=== PATIENT | male | born 1950 | race Caucasian/White ===

== ENCOUNTER 2021-07-10 11:07 | Inpatient (IN) | payer MEDICARE, BC ==
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
--- NOTE | 2021-07-10 12:29 | CR ---
Chest: Portable view of the chest was obtained. Comparison: No prior chest imaging is available. Patchy areas of increased density are seen on both sides of the chest. Heart size is normal. Slight tortuosity of the thoracic aorta is seen. Old healed fracture deformity is seen within the left clavicle. Mild scattered degenerative change is seen within the spine. Impression: 1. Moderately severe bilateral COVID pneumonia. 2. Other findings believed to be incidental. Diagnostic code #3
[2021-07-10] MEDS ORDERED: Dexamethasone 4 MG Tab PO ONE (12:50)
[2021-07-10] MEDS ORDERED: Sodium Chloride 0.9% 1,000 ML IV STA (12:50)
[2021-07-10] MEDS ORDERED: Temazepam 15 MG Cap PO PRN (14:39)
[2021-07-10] MEDS ORDERED: Ondansetron 4 MG Tab.DIS PO PRN (14:39)
[2021-07-10] MEDS ORDERED: Docusate Sodium 100 MG Cap PO PRN (14:39)
[2021-07-10] MEDS ORDERED: Morphine 2 MG/ML SYRINGE IVPUSH PRN (14:39)
[2021-07-10] MEDS ORDERED: oxyCODONE 5 MG Tab PO PRN (14:39)
[2021-07-10] MEDS ORDERED: Acetaminophen 325 MG Tab PO PRN (14:39)
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
[2021-07-10] MEDS ORDERED: REMDESIVIR 200 MG in Sodium Chloride 0.9% 250 ML IV ONE (16:00)
[2021-07-10] MEDS: Albuterol/Ipratropium 3.0-0.5 MG/3 ML Neb Soln NEB PRN (20:06)
[2021-07-10] MEDS: Heparin Sodium 5,000 Units/ML Vial SUBCUT SCH (20:43)
[2021-07-11] MEDS: Heparin Sodium 5,000 Units/ML Vial SUBCUT SCH ×3 (05:30→21:12)
--- NOTE | 2021-07-11 06:50 | PCM.PN ---
- General Info Date of Service: 07/11/21 Admission Dx/Problem (Free Text): Admission Diagnosis/Problem Admission Diagnosis/Problem respiratory failure due to COVID-19 pneumonia. Subjective Update: The patient is a 71-year-old gentleman who was admitted through the emergency department after being evaluated by his primary care physician. He is found to have decreased renal function as well as testing positive for COVID-19. The patient today says that he is feeling better. The patient has been tolerating his diet. He has denied any new pain. No other complaints. Functional Status: Reports: Pain Controlled, Tolerating Diet. Denies: New Symptoms - Review of Systems General: Reports: No Symptoms HEENT: Reports: No Symptoms Pulmonary: Reports: Shortness of Breath, Cough Cardiovascular: Reports: No Symptoms Gastrointestinal: Reports: No Symptoms Genitourinary: Reports: No Symptoms Musculoskeletal: Reports: No Symptoms Skin: Reports: No Symptoms Neurological: Reports: No Symptoms Psychiatric: Reports: No Symptoms - Patient Data Vitals - Most Recent: Last Vital Signs Temp 37.1 C 07/11/21 05:29 Pulse 88 07/11/21 05:29 Resp 16 07/11/21 05:29 BP 111/82 07/11/21 05:29 Pulse Ox 97 07/11/21 05:29 Weight - Most Recent: 101.65 kg I&O - Last 24 Hours: Intake & Output 07/10/21 07/10/21 07/11/21 14:59 22:59 06:59 Intake Total 700 Output Total 90 Balance 610 Lab Results Last 24 Hours: Laboratory Results - last 24 hr 07/10/21 07/10/21 07/10/21 Range/Units 11:46 11:46 11:46 WBC 8.20 (4.23-9.07) K/mm3 RBC 4.70 (4.63-6.08) M/mm3 Hgb 15.0 (13.7-17.5) gm/dl Hct 45.0 (40.1-51.0) % MCV 95.7 H (79.0-92.2) fl MCH 31.9 (25.7-32.2) pg MCHC 33.3 (32.2-35.5) g/dl RDW Std Deviation 44.2 H (35.1-43.9) fL Plt Count 172 (163-337) K/mm3 MPV 10.4 (9.4-12.3) fl Neut % (Auto) 86.7 H (34.0-67.9) % Lymph % (Auto) 7.9 L (21.8-53.1) % [place] % (Auto) 5.0 L (5.3-12.2) % Eos % (Auto) 0 L (0.8-7.0) Baso % (Auto) 0.2 (0.1-1.2) % Neut # (Auto) 7.10 H (1.78-5.38) K/mm3 Lymph # (Auto) 0.65 L (1.32-3.57) K/mm3 [place] # (Auto) 0.41 (0.30-0.82) K/mm3 Eos # (Auto) 0.00 L (0.04-0.54) K/mm3 Baso # (Auto) 0.02 (0.01-0.08) K/mm3 Manual Slide Review Normal smear D-Dimer, Quantitative 1.38 H (0.19-0.50) mg/L Sodium 138 (136-145) mEq/L Potassium 3.9 (3.5-5.1) mEq/L Chloride 98 (98-107) mEq/L Carbon Dioxide 26 (21-32) mEq/L Anion Gap 17.9 H (5-15) BUN 41 H (7-18) mg/dL Creatinine 3.2 H (0.7-1.3) mg/dL Est Cr Clr Drug Dosing 22.50 mL/min Estimated GFR (MDRD) 19 (>60) mL/min BUN/Creatinine Ratio 12.8 L (14-18) Glucose 127 H (70-99) mg/dL Calcium 8.2 L (8.5-10.1) mg/dL Total Bilirubin 0.7 (0.2-1.0) mg/dL AST 67 H (15-37) U/L ALT 58 (16-63) U/L Alkaline Phosphatase 55 (46-116) U/L Troponin I < 0.017 (0.00-0.056) ng/mL C-Reactive Protein 10.3 H* (<1.0) mg/dL NT-Pro-B Natriuret Pep (0-125) pg/mL Total Protein 7.1 (6.4-8.2) g/dl Albumin 3.0 L (3.4-5.0) g/dl Globulin 4.1 gm/dL Albumin/Globulin Ratio 0.7 L (1-2) 07/10/21 Range/Units 11:46 WBC (4.23-9.07) K/mm3 RBC (4.63-6.08) M/mm3 Hgb (13.7-17.5) gm/dl Hct (40.1-51.0) % MCV (79.0-92.2) fl MCH (25.7-32.2) pg MCHC (32.2-35.5) g/dl RDW Std Deviation (35.1-43.9) fL Plt Count (163-337) K/mm3 MPV (9.4-12.3) fl Neut % (Auto) (34.0-67.9) % Lymph % (Auto) (21.8-53.1) % [place] % (Auto) (5.3-12.2) % Eos % (Auto) (0.8-7.0) Baso % (Auto) (0.1-1.2) % Neut # (Auto) (1.78-5.38) K/mm3 Lymph # (Auto) (1.32-3.57) K/mm3 [place] # (Auto) (0.30-0.82) K/mm3 Eos # (Auto) (0.04-0.54) K/mm3 Baso # (Auto) (0.01-0.08) K/mm3 Manual Slide Review D-Dimer, Quantitative (0.19-0.50) mg/L Sodium (136-145) mEq/L Potassium (3.5-5.1) mEq/L Chloride (98-107) mEq/L Carbon Dioxide (21-32) mEq/L Anion Gap (5-15) BUN (7-18) mg/dL Creatinine (0.7-1.3) mg/dL Est Cr Clr Drug Dosing mL/min Estimated GFR (MDRD) (>60) mL/min BUN/Creatinine Ratio (14-18) Glucose (70-99) mg/dL Calcium (8.5-10.1) mg/dL Total Bilirubin (0.2-1.0) mg/dL AST (15-37) U/L ALT (16-63) U/L Alkaline Phosphatase (46-116) U/L Troponin I (0.00-0.056) ng/mL C-Reactive Protein (<1.0) mg/dL NT-Pro-B Natriuret Pep 46 (0-125) pg/mL Total Protein (6.4-8.2) g/dl Albumin (3.4-5.0) g/dl Globulin gm/dL Albumin/Globulin Ratio (1-2) Med Orders - Current: Current Medications Acetaminophen (Acetaminophen 325 Mg Tab) 650 mg PO Q4H PRN PRN Reason: Pain (Mild 1-3)/fever Albuterol/Ipratropium (Albuterol/Ipratropium 3.0-0.5 Mg/3 Ml Neb Soln) 3 ml NEB Q4H PRN PRN Reason: Shortness Of Breath/wheezing Last Admin: 07/10/21 20:06 Dose: 3 ml Documented by: Dexamethasone (Dexamethasone 4 Mg Tab) 6 mg PO BID [facility] Docusate Sodium (Docusate Sodium 100 Mg Cap) 100 mg PO BID PRN PRN Reason: Constipation Heparin Sodium (Porcine) (Heparin Sodium 5,000 Units/Ml Vial) 5,000 units SUBCUT Q8H [facility] Last Admin: 07/11/21 05:30 Dose: 5,000 units Documented by: Remdesivir 100 mg/ Sodium (Chloride) 100 mls @ 100 mls/hr IV Q24H [facility] Stop: 07/14/21 16:59 Morphine Sulfate (Morphine 2 Mg/Ml Syringe) 2 mg IVPUSH Q2H PRN PRN Reason: Pain (severe 7-10) Stop: 07/11/21 14:39 Ondansetron HCl (Ondansetron 4 Mg Tab.Dis) 4 mg PO Q4H PRN PRN Reason: nausea, able to take PO Oxycodone HCl (Oxycodone 5 Mg Tab) 5 mg PO Q4H PRN PRN Reason: Pain (moderate 4-6) Temazepam (Temazepam 15 Mg Cap) 15 mg PO BEDTIME PRN PRN Reason: Sleep Discontinued Medications Dexamethasone (Dexamethasone 4 Mg Tab) 6 mg PO ONETIME ONE Stop: 07/10/21 12:51 Last Admin: 07/10/21 13:08 Dose: 6 mg Documented by: Enoxaparin Sodium (Enoxaparin 30 Mg/0.3 Ml Syringe) 30 mg SUBCUT DAILY [facility] Sodium Chloride (Normal Saline) 1,000 mls @ 999 mls/hr IV NOW STA Stop: 07/10/21 13:50 Last Admin: 07/10/21 13:08 Dose: 999 mls/hr Documented by: Remdesivir 200 mg/ Sodium (Chloride) 250 mls @ 250 mls/hr IV ONETIME ONE Stop: 07/10/21 16:59 Last Admin: 07/10/21 15:35 Dose: 250 mls/hr Documented by: - Exam Quality Assessment: Supplemental Oxygen, DVT Prophylaxis General: Alert, Oriented, Cooperative, No Acute Distress HEENT: Pupils Equal, Pupils Reactive, EOMI, Mucous Membr. Moist/[place] Neck: Supple, Trachea Midline Lungs: Decreased Breath Sounds, Crackles Cardiovascular: Regular Rate, Regular Rhythm GI/Abdominal Exam: Normal Bowel Sounds, Soft, Non-Tender, No Distention (Male) Exam: Deferred Back Exam: Normal Inspection, Full Range of Motion Extremities: Normal Inspection, No Pedal Edema Skin: Warm, Dry, Intact Neurological: No New Focal Deficit Psy/Mental Status: Alert, Normal Affect, Normal Mood - Patient Data Lab Results Last 24 hrs: Laboratory Results - last 24 hr 07/10/21 07/10/21 07/10/21 Range/Units 11:46 11:46 11:46 WBC 8.20 (4.23-9.07) K/mm3 RBC 4.70 (4.63-6.08) M/mm3 Hgb 15.0 (13.7-17.5) gm/dl Hct 45.0 (40.1-51.0) % MCV 95.7 H (79.0-92.2) fl MCH 31.9 (25.7-32.2) pg MCHC 33.3 (32.2-35.5) g/dl RDW Std Deviation 44.2 H (35.1-43.9) fL Plt Count 172 (163-337) K/mm3 MPV 10.4 (9.4-12.3) fl Neut % (Auto) 86.7 H (34.0-67.9) % Lymph % (Auto) 7.9 L (21.8-53.1) % [place] % (Auto) 5.0 L (5.3-12.2) % Eos % (Auto) 0 L (0.8-7.0) Baso % (Auto) 0.2 (0.1-1.2) % Neut # (Auto) 7.10 H (1.78-5.38) K/mm3 Lymph # (Auto) 0.65 L (1.32-3.57) K/mm3 [place] # (Auto) 0.41 (0.30-0.82) K/mm3 Eos # (Auto) 0.00 L (0.04-0.54) K/mm3 Baso # (Auto) 0.02 (0.01-0.08) K/mm3 Manual Slide Review Normal smear D-Dimer, Quantitative 1.38 H (0.19-0.50) mg/L Sodium 138 (136-145) mEq/L Potassium 3.9 (3.5-5.1) mEq/L Chloride 98 (98-107) mEq/L Carbon Dioxide 26 (21-32) mEq/L Anion Gap 17.9 H (5-15) BUN 41 H (7-18) mg/dL Creatinine 3.2 H (0.7-1.3) mg/dL Est Cr Clr Drug Dosing 22.50 mL/min Estimated GFR (MDRD) 19 (>60) mL/min BUN/Creatinine Ratio 12.8 L (14-18) Glucose 127 H (70-99) mg/dL Calcium 8.2 L (8.5-10.1) mg/dL Total Bilirubin 0.7 (0.2-1.0) mg/dL AST 67 H (15-37) U/L ALT 58 (16-63) U/L Alkaline Phosphatase 55 (46-116) U/L Troponin I < 0.017 (0.00-0.056) ng/mL C-Reactive Protein 10.3 H* (<1.0) mg/dL NT-Pro-B Natriuret Pep (0-125) pg/mL Total Protein 7.1 (6.4-8.2) g/dl Albumin 3.0 L (3.4-5.0) g/dl Globulin 4.1 gm/dL Albumin/Globulin Ratio 0.7 L (1-2) 07/10/ Range/Units 11:46 WBC (4.23-9.07) K/mm3 RBC (4.63-6.08) M/mm3 Hgb (13.7-17.5) gm/dl Hct (40.1-51.0) % MCV (79.0-92.2) fl MCH (25.7-32.2) pg MCHC (32.2-35.5) g/dl RDW Std Deviation (35.1-43.9) fL Plt Count (163-337) K/mm3 MPV (9.4-12.3) fl Neut % (Auto) (34.0-67.9) % Lymph % (Auto) (21.8-53.1) % [place] % (Auto) (5.3-12.2) % Eos % (Auto) (0.8-7.0) Baso % (Auto) (0.1-1.2) % Neut # (Auto) (1.78-5.38) K/mm3 Lymph # (Auto) (1.32-3.57) K/mm3 [place] # (Auto) (0.30-0.82) K/mm3 Eos # (Auto) (0.04-0.54) K/mm3 Baso # (Auto) (0.01-0.08) K/mm3 Manual Slide Review D-Dimer, Quantitative (0.19-0.50) mg/L Sodium (136-145) mEq/L Potassium (3.5-5.1) mEq/L Chloride (98-107) mEq/L Carbon Dioxide (21-32) mEq/L Anion Gap (5-15) BUN (7-18) mg/dL Creatinine (0.7-1.3) mg/dL Est Cr Clr Drug Dosing mL/min Estimated GFR (MDRD) (>60) mL/min BUN/Creatinine Ratio (14-18) Glucose (70-99) mg/dL Calcium (8.5-10.1) mg/dL Total Bilirubin (0.2-1.0) mg/dL AST (15-37) U/L ALT (16-63) U/L Alkaline Phosphatase (46-116) U/L Troponin I (0.00-0.056) ng/mL C-Reactive Protein (<1.0) mg/dL NT-Pro-B Natriuret Pep 46 (0-125) pg/mL Total Protein (6.4-8.2) g/dl Albumin (3.4-5.0) g/dl Globulin gm/dL Albumin/Globulin Ratio (1-2) Result Diagrams: 07/11/21 06:06 07/11/21 06:06 Sepsis Event Note - Evaluation Sepsis Screening Result: No Definite Risk - Focused Exam Vital Signs: Vital Signs Temp Pulse Resp BP Pulse Ox Pulse Ox 07/11/21 05:29 37.1 C 88 16 111/82 97 07/11/21 00:02 37.1 C 95 20 110/74 95 07/10/21 20:06 94 L 07/10/21 19:57 36.8 C 110 H 28 H 117/76 93 L - Problem List & Annotations (1) Acute respiratory failure SNOMED Code(s): 30951923 Code(s): J96.00 - ACUTE RESPIRATORY FAILURE, UNSP W HYPOXIA OR HYPERCAPNIA Status: Acute Priority: High Current Visit: Yes Qualifiers: Respiratory failure complication: hypoxia Qualified Code(s): J96.01 - Acute respiratory failure with hypoxia (2) COVID-19 SNOMED Code(s): 502622959 Code(s): U07.1 - COVID-19 Status: Acute Priority: High Current Visit: Yes (3) Tachycardia SNOMED Code(s): 2206006 Code(s): R00.0 - TACHYCARDIA, UNSPECIFIED Status: Acute Priority: High Current Visit: Yes Annotation/Comment:: Reactive tachycardia (4) Acute on chronic renal insufficiency SNOMED Code(s): 904624378 Code(s): N28.9 - DISORDER OF KIDNEY AND URETER, UNSPECIFIED; N18.9 - CHRONIC KIDNEY DISEASE, UNSPECIFIED Status: Acute Priority: High Current Visit: Yes - Problem List Review Problem List Initiated/Reviewed/Updated: Yes - My Orders Last 24 Hours: My Active Orders 07/10/21 14:39 Patient Status [ADT] Routine Cardiac Monitoring [RC] CONTINUOUS Oxygen Therapy [RC] PRN Up ad Nenita [RC] BID VTE/DVT Education [RC] DAILY Vital Signs [RC] Q4HR Acetaminophen [TylenoL] 650 mg PO Q4H PRN Albuterol/Ipratropium [DuoNeb 3.0-0.5 MG/3 ML] 3 ml NEB Q4H PRN Docusate Sodium [Colace] 100 mg PO BID PRN Morphine 2 mg IVPUSH Q2H PRN Ondansetron [Zofran ODT] 4 mg PO Q4H PRN Temazepam [Restoril] 15 mg PO BEDTIME PRN oxyCODONE 5 mg PO Q4H PRN Resuscitation Status Routine 07/10/21 14:40 RT Aerosol Therapy [RC] ASDIRECTED 07/10/21 Dinner Regular Diet [DIET] 07/10/21 19:07 Pulse Oximetry Continuous Monitoring [OM.PC] Routine 07/10/21 21:00 Heparin Sodium 5,000 units SUBCUT Q8H 07/11/21 05:11 C-REACTIVE PROTEIN [CHEM] AM CBC WITH AUTO DIFF [HEME] AM COMPREHENSIVE METABOLIC PN,CMP [CHEM] AM D-DIMER QUANTITATIVE [COAG] AM MAGNESIUM [CHEM] AM 07/11/21 09:00 dexAMETHasone 6 mg PO BID 07/11/21 16:00 Remdesivir 100 mg Sodium Chloride 0.9% [Normal Saline] 100 ml IV Q24H - Plan Plan:: The patient is a 71-year-old gentleman who has been admitted as an inpatient with telemetry due to hypoxia from COVID-19. Is likely the patient had been in incubation stage of COVID-19 prior to his vaccine. The patient has been started on remdesivir 200 mg IV x1 dose now followed by 100 mg IV starting tomorrow for 4 days. He was also started on dexamethasone 6 mg p.o. daily to start tomorrow. The patient is also on oxygen titrated to keep his saturations around 92%. Because of his renal insufficiency he has been ordered to have heparin 5000 units subcu every 8 hours for DVT prophylaxis. The patient did have elevation of his D-dimer and will likely need to be anticoagulated upon discharge. The patient is to have a regular diet as tolerated. He has been encouraged for ambulation. The patient has repeat laboratory studies ordered for the morning. He should be appropriate for discharge in 5 days or after completion of remdesivir. 07/11/2021 The patient is a 71-year-old gentleman who is being retained in hospitalization secondary to treatment of his COVID-19. The patient's pneumonia has improved somewhat. He is still requiring oxygen and his saturations will be kept around 92%. He is also on remdesivir and this will continue for another 4 doses. He is also on DVT prophylaxis and this has been with the use of heparin 5000 units subcutaneous every 8 hours. This is due to his chronic kidney disease. He has had some improvement in his overall renal function. Repeat laboratory studies have been ordered. The patient is encouraged to ambulate.
[2021-07-11] MEDS: Albuterol/Ipratropium 3.0-0.5 MG/3 ML Neb Soln NEB PRN ×2 (08:11→14:06)
[2021-07-11] MEDS ORDERED: Enoxaparin 30 MG/0.3 ML Syringe SUBCUT SCH (09:00)
[2021-07-11] MEDS: Dexamethasone 4 MG Tab PO SCH ×2 (09:33→21:12)
[2021-07-11] MEDS: REMDESIVIR 100 MG in Sodium Chloride 0.9% 100 ML IV SCH (15:56)
[2021-07-12] MEDS: Heparin Sodium 5,000 Units/ML Vial SUBCUT SCH ×3 (05:37→21:23)
[2021-07-12] MEDS: Dexamethasone 4 MG Tab PO SCH ×2 (08:17→21:23)
--- NOTE | 2021-07-12 08:56 | PCM.PN ---
- General Info Date of Service: 07/12/21 Admission Dx/Problem (Free Text): Admission Diagnosis/Problem Admission Diagnosis/Problem respiratory failure due to COVID-19 pneumonia. Subjective Update: The patient is a 71-year-old gentleman who had been admitted from emergency room due to COVID-19 pneumonia. The patient also has been hypoxic. Today he says that he is feeling much better. He says that he is breathing better. No fever. The patient has been tolerating his diet. Functional Status: Reports: Pain Controlled, Tolerating Diet. Denies: New Symptoms - Review of Systems General: Reports: No Symptoms HEENT: Reports: No Symptoms Pulmonary: Reports: Cough Cardiovascular: Reports: No Symptoms Gastrointestinal: Reports: No Symptoms Genitourinary: Reports: No Symptoms Musculoskeletal: Reports: No Symptoms Skin: Reports: No Symptoms Neurological: Reports: No Symptoms Psychiatric: Reports: No Symptoms - Patient Data Vitals - Most Recent: Last Vital Signs Temp 36.3 C 07/12/21 03:37 Pulse 89 07/12/21 03:37 Resp 20 07/12/21 03:37 BP 127/82 07/12/21 03:37 Pulse Ox 90 L 07/12/21 03:37 Weight - Most Recent: 101.786 kg I&O - Last 24 Hours: Intake & Output 07/11/21 07/12/21 07/12/21 22:59 06:59 14:59 Intake Total 970 600 Output Total 600 1000 Balance 370 -400 Med Orders - Current: Current Medications Acetaminophen (Acetaminophen 325 Mg Tab) 650 mg PO Q4H PRN PRN Reason: Pain (Mild 1-3)/fever Albuterol/Ipratropium (Albuterol/Ipratropium 3.0-0.5 Mg/3 Ml Neb Soln) 3 ml NEB Q4H PRN PRN Reason: Shortness Of Breath/wheezing Last Admin: 07/11/21 14:06 Dose: 3 ml Documented by: Dexamethasone (Dexamethasone 4 Mg Tab) 6 mg PO BID [facility] Last Admin: 07/12/21 08:17 Dose: 6 mg Documented by: Docusate Sodium (Docusate Sodium 100 Mg Cap) 100 mg PO BID PRN PRN Reason: Constipation Heparin Sodium (Porcine) (Heparin Sodium 5,000 Units/Ml Vial) 5,000 units SUBCUT Q8H [facility] Last Admin: 07/12/21 05:37 Dose: 5,000 units Documented by: Remdesivir 100 mg/ Sodium (Chloride) 100 mls @ 100 mls/hr IV Q24H [facility] Stop: 07/14/21 16:59 Last Admin: 07/11/21 15:56 Dose: 100 mls/hr Documented by: Ondansetron HCl (Ondansetron 4 Mg Tab.Dis) 4 mg PO Q4H PRN PRN Reason: nausea, able to take PO Oxycodone HCl (Oxycodone 5 Mg Tab) 5 mg PO Q4H PRN PRN Reason: Pain (moderate 4-6) Temazepam (Temazepam 15 Mg Cap) 15 mg PO BEDTIME PRN PRN Reason: Sleep Discontinued Medications Dexamethasone (Dexamethasone 4 Mg Tab) 6 mg PO ONETIME ONE Stop: 07/10/21 12:51 Last Admin: 07/10/21 13:08 Dose: 6 mg Documented by: Enoxaparin Sodium (Enoxaparin 30 Mg/0.3 Ml Syringe) 30 mg SUBCUT DAILY [facility] Sodium Chloride (Normal Saline) 1,000 mls @ 999 mls/hr IV NOW STA Stop: 07/10/21 13:50 Last Admin: 07/10/21 13:08 Dose: 999 mls/hr Documented by: Remdesivir 200 mg/ Sodium (Chloride) 250 mls @ 250 mls/hr IV ONETIME ONE Stop: 07/10/21 16:59 Last Admin: 07/10/21 15:35 Dose: 250 mls/hr Documented by: Morphine Sulfate (Morphine 2 Mg/Ml Syringe) 2 mg IVPUSH Q2H PRN PRN Reason: Pain (severe 7-10) Stop: 07/11/21 14:39 - Exam Quality Assessment: Supplemental Oxygen, DVT Prophylaxis General: Alert, Oriented, Cooperative, No Acute Distress HEENT: Pupils Equal, Pupils Reactive, EOMI, Mucous Membr. Moist/[place] Neck: Supple, Trachea Midline Lungs: Clear to Auscultation, Normal Respiratory Effort Cardiovascular: Regular Rate, Regular Rhythm GI/Abdominal Exam: Normal Bowel Sounds, Soft, Non-Tender, No Distention (Male) Exam: Deferred Back Exam: Normal Inspection, Full Range of Motion Extremities: Normal Inspection, No Pedal Edema Skin: Warm, Dry, Intact Neurological: No New Focal Deficit, Normal Gait, Normal Speech Psy/Mental Status: Alert, Normal Affect, Normal Mood - Patient Data Result Diagrams: 07/11/21 06:06 07/11/21 06:06 Sepsis Event Note - Evaluation Sepsis Screening Result: No Definite Risk - Focused Exam Vital Signs: Vital Signs Temp Pulse Resp BP Pulse Ox 07/12/21 03:37 36.3 C 89 20 127/82 90 L 07/12/21 01:02 36.4 C 93 20 97/68 94 L 07/11/21 21:10 36.7 C 95 20 110/69 91 L - Problem List & Annotations (1) Acute respiratory failure SNOMED Code(s): 10503837 Code(s): J96.00 - ACUTE RESPIRATORY FAILURE, UNSP W HYPOXIA OR HYPERCAPNIA Status: Acute Priority: High Current Visit: Yes Qualifiers: Respiratory failure complication: hypoxia Qualified Code(s): J96.01 - Acute respiratory failure with hypoxia (2) COVID-19 SNOMED Code(s): 164932374 Code(s): U07.1 - COVID-19 Status: Acute Priority: High Current Visit: Yes (3) Tachycardia SNOMED Code(s): 7769438 Code(s): R00.0 - TACHYCARDIA, UNSPECIFIED Status: Acute Priority: High Current Visit: Yes Annotation/Comment:: Reactive tachycardia (4) Acute on chronic renal insufficiency SNOMED Code(s): 165455863 Code(s): N28.9 - DISORDER OF KIDNEY AND URETER, UNSPECIFIED; N18.9 - CHRONIC KIDNEY DISEASE, UNSPECIFIED Status: Acute Priority: High Current Visit: Yes - Problem List Review Problem List Initiated/Reviewed/Updated: Yes - My Orders Last 24 Hours: My Active Orders 07/11/21 09:00 dexAMETHasone 6 mg PO BID 07/11/21 16:00 Remdesivir 100 mg Sodium Chloride 0.9% [Normal Saline] 100 ml IV Q24H - Plan Plan:: The patient is a 71-year-old gentleman who has been admitted as an inpatient with telemetry due to hypoxia from COVID-19. Is likely the patient had been in incubation stage of COVID-19 prior to his vaccine. The patient has been started on remdesivir 200 mg IV x1 dose now followed by 100 mg IV starting tomorrow for 4 days. He was also started on dexamethasone 6 mg p.o. daily to start tomorrow. The patient is also on oxygen titrated to keep his saturations around 92%. Because of his renal insufficiency he has been ordered to have heparin 5000 units subcu every 8 hours for DVT prophylaxis. The patient did have elevation of his D-dimer and will likely need to be anticoagulated upon discharge. The patient is to have a regular diet as tolerated. He has been encouraged for ambulation. The patient has repeat laboratory studies ordered for the morning. He should be appropriate for discharge in 5 days or after completion of remde sivir. 07/11/2021 The patient is a 71-year-old gentleman who is being retained in hospitalization secondary to treatment of his COVID-19. The patient's pneumonia has improved somewhat. He is still requiring oxygen and his saturations will be kept around 92%. He is also on remdesivir and this will continue for another 4 doses. He is also on DVT prophylaxis and this has been with the use of heparin 5000 units subcutaneous every 8 hours. This is due to his chronic kidney disease. He has had some improvement in his overall renal function. Repeat laboratory studies have been ordered. The patient is encouraged to ambulate. 07/12/2021 The patient is a 71-year-old gentleman who is being retained in hospital secondary to treatment of COVID-19. Overall the patient has improved. He is still requiring oxygen and his saturations will be kept around 92%. The patient is also on remdesivir and he will need to continue with this for another 3 doses. Once patient has finished his remdesivir he should be appropriate for discharge or sooner if completely asymptomatic. Repeat laboratory studies have been ordered for the morning. The patient is also afforded DVT prophylaxis with the use of heparin 5000 units subcutaneously every 8 hours. He is to continue with his regular diet as tolerated. The patient's chronic kidney disease is stable at this time. The patient has been encouraged to continue to ambulate.
[2021-07-12] MEDS: REMDESIVIR 100 MG in Sodium Chloride 0.9% 100 ML IV SCH (15:45)
[2021-07-13] MEDS: Heparin Sodium 5,000 Units/ML Vial SUBCUT SCH ×3 (04:20→21:02)
--- NOTE | 2021-07-13 06:55 | PCM.PN ---
- General Info Date of Service: 07/13/21 Admission Dx/Problem (Free Text): Admission Diagnosis/Problem Admission Diagnosis/Problem respiratory failure due to COVID-19 pneumonia. Subjective Update: The patient is a 71-year-old gentleman who had been admitted to acute hospitalization on July 10, 2021 due to acute respiratory failure due to COVID-19 pneumonia. The patient says today that he is breathing very well. He has been tolerating his diet. He is denied any new pain. He has no complaints today. Functional Status: Reports: Pain Controlled, Tolerating Diet, Ambulating. Denies: New Symptoms - Review of Systems General: Reports: No Symptoms HEENT: Reports: No Symptoms Pulmonary: Reports: Shortness of Breath Cardiovascular: Reports: No Symptoms Gastrointestinal: Reports: No Symptoms Genitourinary: Reports: No Symptoms Musculoskeletal: Reports: No Symptoms Skin: Reports: No Symptoms Neurological: Reports: No Symptoms Psychiatric: Reports: No Symptoms - Patient Data Vitals - Most Recent: Last Vital Signs Temp 36.9 C 07/13/21 04:18 Pulse 78 07/13/21 04:18 Resp 20 07/13/21 04:18 BP 124/68 07/13/21 04:18 Pulse Ox 90 L 07/13/21 04:18 Weight - Most Recent: 101.196 kg I&O - Last 24 Hours: Intake & Output 07/12/21 07/12/21 07/13/21 14:59 22:59 06:59 Intake Total 875 400 Output Total 600 450 Balance 275 -50 Lab Results Last 24 Hours: Laboratory Results - last 24 hr 07/13/21 07/13/21 Range/Units 05:18 05:18 WBC 11.64 H (4.23-9.07) K/mm3 RBC 4.33 L (4.63-6.08) M/mm3 Hgb 13.9 (13.7-17.5) gm/dl Hct 41.5 (40.1-51.0) % MCV 95.8 H (79.0-92.2) fl MCH 32.1 (25.7-32.2) pg MCHC 33.5 (32.2-35.5) g/dl RDW Std Deviation 43.5 (35.1-43.9) fL Plt Count 313 D (163-337) K/mm3 MPV 10.2 (9.4-12.3) fl Neut % (Auto) 87.0 H (34.0-67.9) % Lymph % (Auto) 5.3 L (21.8-53.1) % [place] % (Auto) 7.0 (5.3-12.2) % Eos % (Auto) 0 L (0.8-7.0) Baso % (Auto) 0.3 (0.1-1.2) % Neut # (Auto) 10.13 H (1.78-5.38) K/mm3 Lymph # (Auto) 0.62 L (1.32-3.57) K/mm3 [place] # (Auto) 0.81 (0.30-0.82) K/mm3 Eos # (Auto) 0.00 L (0.04-0.54) K/mm3 Baso # (Auto) 0.03 (0.01-0.08) K/mm3 Manual Slide Review Abnormal smear Sodium 138 (136-145) mEq/L Potassium 4.5 (3.5-5.1) mEq/L Chloride 104 (98-107) mEq/L Carbon Dioxide 24 (21-32) mEq/L Anion Gap 14.5 (5-15) BUN 51 H (7-18) mg/dL Creatinine 1.6 H (0.7-1.3) mg/dL Est Cr Clr Drug Dosing 44.99 mL/min Estimated GFR (MDRD) 43 (>60) mL/min BUN/Creatinine Ratio 31.9 H (14-18) Glucose 189 H (70-99) mg/dL Calcium 8.1 L (8.5-10.1) mg/dL Total Bilirubin 0.5 (0.2-1.0) mg/dL AST 175 H (15-37) U/L ALT 165 H (16-63) U/L Alkaline Phosphatase 63 (46-116) U/L C-Reactive Protein 3.7 H* (<1.0) mg/dL Total Protein 5.9 L (6.4-8.2) g/dl Albumin 2.7 L (3.4-5.0) g/dl Globulin 3.2 gm/dL Albumin/Globulin Ratio 0.8 L (1-2) Med Orders - Current: Current Medications Acetaminophen (Acetaminophen 325 Mg Tab) 650 mg PO Q4H PRN PRN Reason: Pain (Mild 1-3)/fever Albuterol/Ipratropium (Albuterol/Ipratropium 3.0-0.5 Mg/3 Ml Neb Soln) 3 ml NEB Q4H PRN PRN Reason: Shortness Of Breath/wheezing Last Admin: 07/11/21 14:06 Dose: 3 ml Documented by: Dexamethasone (Dexamethasone 4 Mg Tab) 6 mg PO BID [facility] Last Admin: 07/12/21 21:23 Dose: 6 mg Documented by: Docusate Sodium (Docusate Sodium 100 Mg Cap) 100 mg PO BID PRN PRN Reason: Constipation Last Admin: 07/12/21 18:42 Dose: 100 mg Documented by: Heparin Sodium (Porcine) (Heparin Sodium 5,000 Units/Ml Vial) 5,000 units SUBCUT Q8H [facility] Last Admin: 07/13/21 04:20 Dose: 5,000 units Documented by: Remdesivir 100 mg/ Sodium (Chloride) 100 mls @ 100 mls/hr IV Q24H [facility] Stop: 07/14/21 16:59 Last Admin: 07/12/21 15:45 Dose: 100 mls/hr Documented by: Ondansetron HCl (Ondansetron 4 Mg Tab.Dis) 4 mg PO Q4H PRN PRN Reason: nausea, able to take PO Oxycodone HCl (Oxycodone 5 Mg Tab) 5 mg PO Q4H PRN PRN Reason: Pain (moderate 4-6) Temazepam (Temazepam 15 Mg Cap) 15 mg PO BEDTIME PRN PRN Reason: Sleep Discontinued Medications Dexamethasone (Dexamethasone 4 Mg Tab) 6 mg PO ONETIME ONE Stop: 07/10/21 12:51 Last Admin: 07/10/21 13:08 Dose: 6 mg Documented by: Enoxaparin Sodium (Enoxaparin 30 Mg/0.3 Ml Syringe) 30 mg SUBCUT DAILY [facility] Sodium Chloride (Normal Saline) 1,000 mls @ 999 mls/hr IV NOW STA Stop: 07/10/21 13:50 Last Admin: 07/10/21 13:08 Dose: 999 mls/hr Documented by: Remdesivir 200 mg/ Sodium (Chloride) 250 mls @ 250 mls/hr IV ONETIME ONE Stop: 07/10/21 16:59 Last Admin: 07/10/21 15:35 Dose: 250 mls/hr Documented by: Morphine Sulfate (Morphine 2 Mg/Ml Syringe) 2 mg IVPUSH Q2H PRN PRN Reason: Pain (severe 7-10) Stop: 07/11/21 14:39 - Exam Quality Assessment: Supplemental Oxygen, DVT Prophylaxis General: Alert, Oriented, Cooperative HEENT: Pupils Equal, Pupils Reactive, EOMI, Mucous Membr. Moist/[place] Neck: Supple, Trachea Midline Lungs: Clear to Auscultation, Normal Respiratory Effort Cardiovascular: Regular Rate, Regular Rhythm GI/Abdominal Exam: Normal Bowel Sounds, Soft, Non-Tender, No Distention (Male) Exam: Deferred Back Exam: Normal Inspection, Full Range of Motion Extremities: Normal Inspection, No Pedal Edema Skin: Warm, Dry, Intact Neurological: No New Focal Deficit, Normal Gait, Normal Speech Psy/Mental Status: Alert, Normal Affect, Normal Mood - Patient Data Lab Results Last 24 hrs: Laboratory Results - last 24 hr 07/13/21 07/13/21 Range/Units 05:18 05:18 WBC 11.64 H (4.23-9.07) K/mm3 RBC 4.33 L (4.63-6.08) M/mm3 Hgb 13.9 (13.7-17.5) gm/dl Hct 41.5 (40.1-51.0) % MCV 95.8 H (79.0-92.2) fl MCH 32.1 (25.7-32.2) pg MCHC 33.5 (32.2-35.5) g/dl RDW Std Deviation 43.5 (35.1-43.9) fL Plt Count 313 D (163-337) K/mm3 MPV 10.2 (9.4-12.3) fl Neut % (Auto) 87.0 H (34.0-67.9) % Lymph % (Auto) 5.3 L (21.8-53.1) % [place] % (Auto) 7.0 (5.3-12.2) % Eos % (Auto) 0 L (0.8-7.0) Baso % (Auto) 0.3 (0.1-1.2) % Neut # (Auto) 10.13 H (1.78-5.38) K/mm3 Lymph # (Auto) 0.62 L (1.32-3.57) K/mm3 [place] # (Auto) 0.81 (0.30-0.82) K/mm3 Eos # (Auto) 0.00 L (0.04-0.54) K/mm3 Baso # (Auto) 0.03 (0.01-0.08) K/mm3 Manual Slide Review Abnormal smear Sodium 138 (136-145) mEq/L Potassium 4.5 (3.5-5.1) mEq/L Chloride 104 (98-107) mEq/L Carbon Dioxide 24 (21-32) mEq/L Anion Gap 14.5 (5-15) BUN 51 H (7-18) mg/dL Creatinine 1.6 H (0.7-1.3) mg/dL Est Cr Clr Drug Dosing 44.99 mL/min Estimated GFR (MDRD) 43 (>60) mL/min BUN/Creatinine Ratio 31.9 H (14-18) Glucose 189 H (70-99) mg/dL Calcium 8.1 L (8.5-10.1) mg/dL Total Bilirubin 0.5 (0.2-1.0) mg/dL AST 175 H (15-37) U/L ALT 165 H (16-63) U/L Alkaline Phosphatase 63 (46-116) U/L C-Reactive Protein 3.7 H* (<1.0) mg/dL Total Protein 5.9 L (6.4-8.2) g/dl Albumin 2.7 L (3.4-5.0) g/dl Globulin 3.2 gm/dL Albumin/Globulin Ratio 0.8 L (1-2) Result Diagrams: 07/13/21 05:18 07/13/21 05:18 Sepsis Event Note - Evaluation Sepsis Screening Result: No Definite Risk - Focused Exam Vital Signs: Vital Signs Temp Pulse Pulse Resp BP Pulse Ox Pulse Ox 07/13/21 04:18 36.9 C 78 20 124/68 90 L 07/13/21 00:00 90 16 92 L 07/12/21 22:41 91 L 07/12/21 21:19 36.8 C 94 14 114/73 90 L - Problem List & Annotations (1) Acute respiratory failure SNOMED Code(s): 76669808 Code(s): J96.00 - ACUTE RESPIRATORY FAILURE, UNSP W HYPOXIA OR HYPERCAPNIA Status: Acute Priority: High Current Visit: Yes Qualifiers: Respiratory failure complication: hypoxia Qualified Code(s): J96.01 - Acute respiratory failure with hypoxia (2) COVID-19 SNOMED Code(s): 573903885 Code(s): U07.1 - COVID-19 Status: Acute Priority: High Current Visit: Yes (3) Tachycardia SNOMED Code(s): 5181711 Code(s): R00.0 - TACHYCARDIA, UNSPECIFIED Status: Acute Priority: High Current Visit: Yes Annotation/Comment:: Reactive tachycardia (4) Acute on chronic renal insufficiency SNOMED Code(s): 016085480 Code(s): N28.9 - DISORDER OF KIDNEY AND URETER, UNSPECIFIED; N18.9 - CHRONIC KIDNEY DISEASE, UNSPECIFIED Status: Acute Priority: High Current Visit: Yes - Problem List Review Problem List Initiated/Reviewed/Updated: Yes - My Orders Last 24 Hours: My Active Orders 07/12/21 09:16 RT Incentive Spirometry [RC] ASDIRECTED 07/12/21 09:17 RT Chest Physiotherapy [RC] ASDIRECTED - Plan Plan:: The patient is a 71-year-old gentleman who has been admitted as an inpatient with telemetry due to hypoxia from COVID-19. Is likely the patient had been in incubation stage of COVID-19 prior to his vaccine. The patient has been started on remdesivir 200 mg IV x1 dose now followed by 100 mg IV starting tomorrow for 4 days. He was also started on dexamethasone 6 mg p.o. daily to start tomorrow. The patient is also on oxygen titrated to keep his saturations around 92%. Because of his renal insufficiency he has been ordered to have heparin 5000 units subcu every 8 hours for DVT prophylaxis. The patient did have elevation of his D-dimer and will likely need to be anticoagulated upon discharge. The patient is to have a regular diet as tolerated. He has been encouraged for ambulation. The patient has repeat laboratory studies ordered for the morning. He should be appropriate for discharge in 5 days or after completion of remdesivir. 07/11/2021 The patient is a 71-year-old gentleman who is being retained in hospitalization secondary to treatment of his COVID-19. The patient's pneumonia has improved somewhat. He is still requiring oxygen and his saturations will be kept around 92%. He is also on remdesivir and this will continue for another 4 doses. He is also on DVT prophylaxis and this has been with the use of heparin 5000 units subcutaneous every 8 hours. This is due to his chronic kidney disease. He has had some improvement in his overall renal function. Repeat laboratory studies have been ordered. The patient is encouraged to ambulate. 07/12/2021 The patient is a 71-year-old gentleman who is being retained in hospital secondary to treatment of COVID-19. Overall the patient has improved. He is still requiring oxygen and his saturations will be kept around 92%. The patient is also on remdesivir and he will need to continue with this for another 3 doses. Once patient has finished his remdesivir he should be appropriate for discharge or sooner if completely asymptomatic. Repeat laboratory studies have been ordered for the morning. The patient is also afforded DVT prophylaxis with the use of heparin 5000 units subcutaneously every 8 hours. He is to continue with his regular diet as tolerated. The patient's chronic kidney disease is s table at this time. The patient has been encouraged to continue to ambulate. 07/13/2021 The patient is a 71-year-old gentleman who had been admitted secondary to acute respiratory failure due to COVID-19 pneumonia. The patient has still required oxygen at 5 L/min and his oxygen will be titrated down to keep his saturations around 92%. The patient's last dose of remdesivir will be tomorrow. The patient will have repeat laboratory testings as his LFTs have risen mildly likely secondary to the remdesivir. The patient also has improvement in his chronic renal failure and this will be monitored for now. The patient should be appropriate for discharge tomorrow depending upon improvement in his oxygen demands. He has been recommended to continue to ambulate. He will continue with his DVT prophylaxis with use of heparin subcu 5000 units daily. He is also been placed on stool softener for bowel movement.
[2021-07-13] MEDS: Albuterol/Ipratropium 3.0-0.5 MG/3 ML Neb Soln NEB PRN (08:32)
[2021-07-13] MEDS: Dexamethasone 4 MG Tab PO SCH ×2 (10:22→21:01)
[2021-07-13] MEDS: REMDESIVIR 100 MG in Sodium Chloride 0.9% 100 ML IV SCH (16:15)
[2021-07-14] MEDS: Heparin Sodium 5,000 Units/ML Vial SUBCUT SCH ×4 (03:55→21:50)
[2021-07-14] MEDS: Albuterol/Ipratropium 3.0-0.5 MG/3 ML Neb Soln NEB PRN ×3 (06:35→18:01)
[2021-07-14] MEDS: Dexamethasone 4 MG Tab PO SCH ×2 (08:04→21:50)
--- NOTE | 2021-07-14 11:24 | PCM.PN ---
- General Info Date of Service: 07/14/21 Admission Dx/Problem (Free Text): Admission Diagnosis/Problem Admission Diagnosis/Problem respiratory failure due to COVID-19 pneumonia. Subjective Update: The patient is a 71-year-old gentleman who was admitted to acute hospitalization from [facility] for evaluation of decreased renal function and elevated liver enzymes. He was admitted secondary to COVID-19 pneumonia. The patient has completed his final dose of remdesivir. He is also been on dexamethasone. The patient today says that he is feeling better. He is still requiring oxygen. He has been tolerating his diet. He has denied any new pain. He has no other complaints. Functional Status: Reports: Pain Controlled, Tolerating Diet. Denies: New Symptoms - Review of Systems General: Reports: No Symptoms HEENT: Reports: No Symptoms Pulmonary: Reports: No Symptoms Cardiovascular: Reports: No Symptoms Gastrointestinal: Reports: No Symptoms Genitourinary: Reports: No Symptoms Musculoskeletal: Reports: No Symptoms Skin: Reports: No Symptoms Neurological: Reports: No Symptoms Psychiatric: Reports: No Symptoms - Patient Data Vitals - Most Recent: Last Vital Signs Temp 36.7 C 07/14/21 07:33 Pulse 68 07/14/21 07:33 Resp 18 07/14/21 08:55 BP 127/79 07/14/21 07:33 Pulse Ox 94 L 07/14/21 09:05 Weight - Most Recent: 101.06 kg I&O - Last 24 Hours: Intake & Output 07/13/21 07/14/21 07/14/21 22:59 06:59 14:59 Intake Total 1315 400 Output Total 400 1050 Balance 915 -650 Lab Results Last 24 Hours: Laboratory Results - last 24 hr 07/14/21 07/14/21 Range/Units 08:03 08:03 WBC 10.51 H (4.23-9.07) K/mm3 RBC 4.39 L (4.63-6.08) M/mm3 Hgb 14.1 (13.7-17.5) gm/dl Hct 42.1 (40.1-51.0) % MCV 95.9 H (79.0-92.2) fl MCH 32.1 (25.7-32.2) pg MCHC 33.5 (32.2-35.5) g/dl RDW Std Deviation 43.6 (35.1-43.9) fL Plt Count 342 H (163-337) K/mm3 MPV 10.1 (9.4-12.3) fl Neut % (Auto) 87.8 H (34.0-67.9) % Lymph % (Auto) 4.3 L (21.8-53.1) % [place] % (Auto) 7.1 (5.3-12.2) % Eos % (Auto) 0 L (0.8-7.0) Baso % (Auto) 0.2 (0.1-1.2) % Neut # (Auto) 9.23 H (1.78-5.38) K/mm3 Lymph # (Auto) 0.45 L (1.32-3.57) K/mm3 [place] # (Auto) 0.75 (0.30-0.82) K/mm3 Eos # (Auto) 0.00 L (0.04-0.54) K/mm3 Baso # (Auto) 0.02 (0.01-0.08) K/mm3 Manual Slide Review Abnormal smear Sodium 141 (136-145) mEq/L Potassium 4.3 (3.5-5.1) mEq/L Chloride 106 (98-107) mEq/L Carbon Dioxide 25 (21-32) mEq/L Anion Gap 14.3 (5-15) BUN 46 H (7-18) mg/dL Creatinine 1.3 (0.7-1.3) mg/dL Est Cr Clr Drug Dosing 55.37 mL/min Estimated GFR (MDRD) 55 (>60) mL/min BUN/Creatinine Ratio 35.4 H (14-18) Glucose 172 H (70-99) mg/dL Calcium 8.3 L (8.5-10.1) mg/dL Total Bilirubin 0.9 (0.2-1.0) mg/dL AST 93 H (15-37) U/L ALT 142 H (16-63) U/L Alkaline Phosphatase 64 (46-116) U/L C-Reactive Protein 2.2 H* (<1.0) mg/dL Total Protein 6.4 (6.4-8.2) g/dl Albumin 2.7 L (3.4-5.0) g/dl Globulin 3.7 gm/dL Albumin/Globulin Ratio 0.7 L (1-2) Med Orders - Current: Current Medications Acetaminophen (Acetaminophen 325 Mg Tab) 650 mg PO Q4H PRN PRN Reason: Pain (Mild 1-3)/fever Albuterol/Ipratropium (Albuterol/Ipratropium 3.0-0.5 Mg/3 Ml Neb Soln) 3 ml NEB Q4H PRN PRN Reason: Shortness Of Breath/wheezing Last Admin: 07/14/21 11:24 Dose: 3 ml Documented by: Dexamethasone (Dexamethasone 4 Mg Tab) 6 mg PO BID [facility] Last Admin: 07/14/21 08:04 Dose: 6 mg Documented by: Docusate Sodium (Docusate Sodium 100 Mg Cap) 100 mg PO BID PRN PRN Reason: Constipation Last Admin: 07/12/21 18:42 Dose: 100 mg Documented by: Heparin Sodium (Porcine) (Heparin Sodium 5,000 Units/Ml Vial) 5,000 units SUBCUT Q8H [facility] Last Admin: 07/14/21 04:28 Dose: Not Given Documented by: Remdesivir 100 mg/ Sodium (Chloride) 100 mls @ 100 mls/hr IV Q24H [facility] Stop: 07/14/21 16:59 Last Admin: 07/13/21 16:15 Dose: 100 mls/hr Documented by: Ondansetron HCl (Ondansetron 4 Mg Tab.Dis) 4 mg PO Q4H PRN PRN Reason: nausea, able to take PO Oxycodone HCl (Oxycodone 5 Mg Tab) 5 mg PO Q4H PRN PRN Reason: Pain (moderate 4-6) Senna/Docusate Sodium (Docusate Sodium/Sennosides 50-8.6 Mg Tab) 1 tab PO DAILY PRN PRN Reason: Constipation Last Admin: 07/13/21 10:22 Dose: 1 tab Documented by: Temazepam (Temazepam 15 Mg Cap) 15 mg PO BEDTIME PRN PRN Reason: Sleep Discontinued Medications Dexamethasone (Dexamethasone 4 Mg Tab) 6 mg PO ONETIME ONE Stop: 07/10/21 12:51 Last Admin: 07/10/21 13:08 Dose: 6 mg Documented by: Enoxaparin Sodium (Enoxaparin 30 Mg/0.3 Ml Syringe) 30 mg SUBCUT DAILY [facility] Sodium Chloride (Normal Saline) 1,000 mls @ 999 mls/hr IV NOW STA Stop: 07/10/21 13:50 Last Admin: 07/10/21 13:08 Dose: 999 mls/hr Documented by: Remdesivir 200 mg/ Sodium (Chloride) 250 mls @ 250 mls/hr IV ONETIME ONE Stop: 07/10/21 16:59 Last Admin: 07/10/21 15:35 Dose: 250 mls/hr Documented by: Morphine Sulfate (Morphine 2 Mg/Ml Syringe) 2 mg IVPUSH Q2H PRN PRN Reason: Pain (severe 7-10) Stop: 07/11/21 14:39 - Exam Quality Assessment: Supplemental Oxygen, DVT Prophylaxis General: Alert, Oriented, Cooperative, No Acute Distress HEENT: Pupils Equal, Pupils Reactive, EOMI Neck: Supple, Trachea Midline Lungs: Clear to Auscultation, Normal Respiratory Effort Cardiovascular: Regular Rate, Regular Rhythm GI/Abdominal Exam: Normal Bowel Sounds, Soft, Non-Tender, No Distention (Male) Exam: Deferred Back Exam: Normal Inspection, Full Range of Motion Extremities: Normal Inspection, Normal Range of Motion, No Pedal Edema Skin: Warm, Dry, Intact Neurological: No New Focal Deficit, Normal Gait, Normal Speech Psy/Mental Status: Alert, Normal Affect, Normal Mood - Patient Data Lab Results Last 24 hrs: Laboratory Results - last 24 hr 07/14/21 07/14/21 Range/Units 08:03 08:03 WBC 10.51 H (4.23-9.07) K/mm3 RBC 4.39 L (4.63-6.08) M/mm3 Hgb 14.1 (13.7-17.5) gm/dl Hct 42.1 (40.1-51.0) % MCV 95.9 H (79.0-92.2) fl MCH 32.1 (25.7-32.2) pg MCHC 33.5 (32.2-35.5) g/dl RDW Std Deviation 43.6 (35.1-43.9) fL Plt Count 342 H (163-337) K/mm3 MPV 10.1 (9.4-12.3) fl Neut % (Auto) 87.8 H (34.0-67.9) % Lymph % (Auto) 4.3 L (21.8-53.1) % [place] % (Auto) 7.1 (5.3-12.2) % Eos % (Auto) 0 L (0.8-7.0) Baso % (Auto) 0.2 (0.1-1.2) % Neut # (Auto) 9.23 H (1.78-5.38) K/mm3 Lymph # (Auto) 0.45 L (1.32-3.57) K/mm3 [place] # (Auto) 0.75 (0.30-0.82) K/mm3 Eos # (Auto) 0.00 L (0.04-0.54) K/mm3 Baso # (Auto) 0.02 (0.01-0.08) K/mm3 Manual Slide Review Abnormal smear Sodium 141 (136-145) mEq/L Potassium 4.3 (3.5-5.1) mEq/L Chloride 106 (98-107) mEq/L Carbon Dioxide 25 (21-32) mEq/L Anion Gap 14.3 (5-15) BUN 46 H (7-18) mg/dL Creatinine 1.3 (0.7-1.3) mg/dL Est Cr Clr Drug Dosing 55.37 mL/min Estimated GFR (MDRD) 55 (>60) mL/min BUN/Creatinine Ratio 35.4 H (14-18) Glucose 172 H (70-99) mg/dL Calcium 8.3 L (8.5-10.1) mg/dL Total Bilirubin 0.9 (0.2-1.0) mg/dL AST 93 H (15-37) U/L ALT 142 H (16-63) U/L Alkaline Phosphatase 64 (46-116) U/L C-Reactive Protein 2.2 H* (<1.0) mg/dL Total Protein 6.4 (6.4-8.2) g/dl Albumin 2.7 L (3.4-5.0) g/dl Globulin 3.7 gm/dL Albumin/Globulin Ratio 0.7 L (1-2) Result Diagrams: 07/14/21 08:03 07/14/21 08:03 Sepsis Event Note - Evaluation Sepsis Screening Result: No Definite Risk - Focused Exam Vital Signs: Vital Signs Temp Pulse Resp BP Pulse Ox Pulse Ox 07/14/21 09:05 94 L 07/14/21 08:55 18 92 L 07/14/21 08:15 88 L 07/14/21 08:00 18 83 L 07/14/21 07:33 36.7 C 68 18 127/79 91 L 07/14/21 06:38 89 L 07/14/21 04:00 36.9 C 64 14 108/88 94 L 07/14/21 00:00 92 L - Problem List & Annotations (1) Acute respiratory failure SNOMED Code(s): 72811226 Code(s): J96.00 - ACUTE RESPIRATORY FAILURE, UNSP W HYPOXIA OR HYPERCAPNIA Status: Acute Priority: High Current Visit: Yes Qualifiers: Respiratory failure complication: hypoxia Qualified Code(s): J96.01 - Acute respiratory failure with hypoxia (2) COVID-19 SNOMED Code(s): 043443122 Code(s): U07.1 - COVID-19 Status: Acute Priority: High Current Visit: Yes (3) Tachycardia SNOMED Code(s): 6789025 Code(s): R00.0 - TACHYCARDIA, UNSPECIFIED Status: Acute Priority: High Current Visit: Yes Annotation/Comment:: Reactive tachycardia (4) Acute on chronic renal insufficiency SNOMED Code(s): 647736151 Code(s): N28.9 - DISORDER OF KIDNEY AND URETER, UNSPECIFIED; N18.9 - CHRONIC KIDNEY DISEASE, UNSPECIFIED Status: Acute Priority: High Current Visit: Yes - Problem List Review Problem List Initiated/Reviewed/Updated: Yes - Plan Plan:: The patient is a 71-year-old gentleman who has been admitted as an inpatient with telemetry due to hypoxia from COVID-19. Is likely the patient had been in incubation stage of COVID-19 prior to his vaccine. The patient has been started on remdesivir 200 mg IV x1 dose now followed by 100 mg IV starting tomorrow for 4 days. He was also started on dexamethasone 6 mg p.o. daily to start tomorrow. The patient is also on oxygen titrated to keep his saturations around 92%. Because of his renal insufficiency he has been ordered to have heparin 5000 units subcu every 8 hours for DVT prophylaxis. The patient did have elevation of his D-dimer and will likely need to be anticoagulated upon discharge. The pa tient is to have a regular diet as tolerated. He has been encouraged for ambulation. The patient has repeat laboratory studies ordered for the morning. He should be appropriate for discharge in 5 days or after completion of remdesivir. 07/11/2021 The patient is a 71-year-old gentleman who is being retained in hospitalization secondary to treatment of his COVID-19. The patient's pneumonia has improved somewhat. He is still requiring oxygen and his saturations will be kept around 92%. He is also on remdesivir and this will continue for another 4 doses. He is also on DVT prophylaxis and this has been with the use of heparin 5000 units subcutaneous every 8 hours. This is due to his chronic kidney disease. He has had some improvement in his overall renal function. Repeat laboratory studies have been ordered. The patient is encouraged to ambulate. 07/12/2021 The patient is a 71-year-old gentleman who is being retained in hospital secondary to treatment of COVID-19. Overall the patient has improved. He is still requiring oxygen and his saturations will be kept around 92%. The patient is also on remdesivir and he will need to continue with this for another 3 doses. Once patient has finished his remdesivir he should be appropriate for discharge or sooner if completely asymptomatic. Repeat laboratory studies have been ordered for the morning. The patient is also afforded DVT prophylaxis with the use of heparin 5000 units subcutaneously every 8 hours. He is to continue with his regular diet as tolerated. The patient's chronic kidney disease is stable at this time. The patient has been encouraged to continue to ambulate. 07/13/2021 The patient is a 71-year-old gentleman who had been admitted secondary to acute respiratory failure due to COVID-19 pneumonia. The patient has still required oxygen at 5 L/min and his oxygen will be titrated down to keep his saturations around 92%. The patient's last dose of remdesivir will be tomorrow. The patient will have repeat laboratory testings as his LFTs have risen mildly likely secondary to the remdesivir. The patient also has improvement in his chronic renal failure and this will be monitored for now. The patient should be appropriate for discharge tomorrow depending upon improvement in his oxygen demands. He has been recommended to continue to ambulate. He will continue with his DVT prophylaxis with use of heparin subcu 5000 units daily. He is also been placed on stool softener for bowel movement. 07/14/2021 The patient is a 71-year-old gentleman who is doing much better today. He is still requiring 4 to 5 L of oxygen to maintain his saturations around 92%. The oxygen will be titrated and evaluated off of oxygen. The patient has finished remdesivir but he will continue on the dexamethasone. Patient is to continue with his regular diet as tolerated. I have ordered repeat laboratory studies for the morning to help retract the patient's LFTs. He has been encouraged to use incentive spirometer and Acapella. The patient has been encouraged to walk in his room. He is on DVT prophylaxis with the use of heparin 5000 units every 8 hours subcutaneously due to his renal insufficiency. This is improved. Patient would be appropriate for discharge in 1 to 2 days depending upon oxygen requirements.
[2021-07-14] MEDS: REMDESIVIR 100 MG in Sodium Chloride 0.9% 100 ML IV SCH (16:34)
[2021-07-15] MEDS: Heparin Sodium 5,000 Units/ML Vial SUBCUT SCH ×3 (05:46→20:37)
[2021-07-15] MEDS: Albuterol/Ipratropium 3.0-0.5 MG/3 ML Neb Soln NEB PRN ×3 (05:52→19:45)
--- NOTE | 2021-07-15 08:24 | PCM.PN ---
- General Info Date of Service: 07/15/21 Admission Dx/Problem (Free Text): Admission Diagnosis/Problem Admission Diagnosis/Problem respiratory failure due to COVID-19 pneumonia. Functional Status: Reports: Pain Controlled, Tolerating Diet, Ambulating, Urinating. Denies: New Symptoms - Review of Systems General: Reports: No Symptoms. Denies: Fever, Weakness, Fatigue, Malaise, Chills HEENT: Reports: No Symptoms. Denies: Headaches, Sore Throat Pulmonary: Reports: No Symptoms. Denies: Shortness of Breath, Cough, Sputum, Wheezing Cardiovascular: Reports: No Symptoms. Denies: Chest Pain, Palpitations, Dyspnea on Exertion, Edema Gastrointestinal: Reports: No Symptoms. Denies: Abdominal Pain, Constipation, Diarrhea, Nausea, Vomiting Genitourinary: Reports: No Symptoms. Denies: Pain Musculoskeletal: Reports: No Symptoms Skin: Reports: No Symptoms. Denies: Cyanosis Neurological: Reports: No Symptoms. Denies: Confusion, Dizziness, Headache, Numbness, Pre-Existing Deficit, Tingling, Difficulty Walking, Weakness, Gait Disturbance Psychiatric: Reports: No Symptoms - Patient Data Vitals - Most Recent: Last Vital Signs Temp 97.9 F 07/15/21 05:44 Pulse 62 07/15/21 05:44 Resp 14 07/15/21 05:44 BP 130/93 H 07/15/21 05:44 Pulse Ox 90 L 07/15/21 08:08 Weight - Most Recent: 222 lb 8 oz I&O - Last 24 Hours: Intake & Output 07/14/21 07/15/21 07/15/21 22:59 06:59 14:59 Intake Total 1185 400 Output Total 675 900 Balance 510 -500 Lab Results Last 24 Hours: Laboratory Results - last 24 hr 07/14/21 07/14/21 07/15/21 Range/Units 08:03 08:03 06:57 WBC 10.51 H 9.75 H (4.23-9.07) K/mm3 RBC 4.39 L 4.32 L (4.63-6.08) M/mm3 Hgb 14.1 13.9 (13.7-17.5) gm/dl Hct 42.1 41.8 (40.1-51.0) % MCV 95.9 H 96.8 H (79.0-92.2) fl MCH 32.1 32.2 (25.7-32.2) pg MCHC 33.5 33.3 (32.2-35.5) g/dl RDW Std Deviation 43.6 44.4 H (35.1-43.9) fL Plt Count 342 H 347 H (163-337) K/mm3 MPV 10.1 10.3 (9.4-12.3) fl Neut % (Auto) 87.8 H 86.1 H (34.0-67.9) % Lymph % (Auto) 4.3 L 5.2 L (21.8-53.1) % [place] % (Auto) 7.1 8.2 (5.3-12.2) % Eos % (Auto) 0 L 0 L (0.8-7.0) Baso % (Auto) 0.2 0.1 (0.1-1.2) % Neut # (Auto) 9.23 H 8.39 H (1.78-5.38) K/mm3 Lymph # (Auto) 0.45 L 0.51 L (1.32-3.57) K/mm3 [place] # (Auto) 0.75 0.80 (0.30-0.82) K/mm3 Eos # (Auto) 0.00 L 0.00 L (0.04-0.54) K/mm3 Baso # (Auto) 0.02 0.01 (0.01-0.08) K/mm3 Manual Slide Review Abnormal smear Abnormal smear Sodium 141 (136-145) mEq/L Potassium 4.3 (3.5-5.1) mEq/L Chloride 106 (98-107) mEq/L Carbon Dioxide 25 (21-32) mEq/L Anion Gap 14.3 (5-15) BUN 46 H (7-18) mg/dL Creatinine 1.3 (0.7-1.3) mg/dL Est Cr Clr Drug Dosing 55.37 mL/min Estimated GFR (MDRD) 55 (>60) mL/min BUN/Creatinine Ratio 35.4 H (14-18) Glucose 172 H (70-99) mg/dL Calcium 8.3 L (8.5-10.1) mg/dL Total Bilirubin 0.9 (0.2-1.0) mg/dL AST 93 H (15-37) U/L ALT 142 H (16-63) U/L Alkaline Phosphatase 64 (46-116) U/L C-Reactive Protein 2.2 H* (<1.0) mg/dL Total Protein 6.4 (6.4-8.2) g/dl Albumin 2.7 L (3.4-5.0) g/dl Globulin 3.7 gm/dL Albumin/Globulin Ratio 0.7 L (1-2) 07/15/21 Range/Units 06:57 WBC (4.23-9.07) K/mm3 RBC (4.63-6.08) M/mm3 Hgb (13.7-17.5) gm/dl Hct (40.1-51.0) % MCV (79.0-92.2) fl MCH (25.7-32.2) pg MCHC (32.2-35.5) g/dl RDW Std Deviation (35.1-43.9) fL Plt Count (163-337) K/mm3 MPV (9.4-12.3) fl Neut % (Auto) (34.0-67.9) % Lymph % (Auto) (21.8-53.1) % [place] % (Auto) (5.3-12.2) % Eos % (Auto) (0.8-7.0) Baso % (Auto) (0.1-1.2) % Neut # (Auto) (1.78-5.38) K/mm3 Lymph # (Auto) (1.32-3.57) K/mm3 [place] # (Auto) (0.30-0.82) K/mm3 Eos # (Auto) (0.04-0.54) K/mm3 Baso # (Auto) (0.01-0.08) K/mm3 Manual Slide Review Sodium 140 (136-145) mEq/L Potassium 4.6 (3.5-5.1) mEq/L Chloride 107 (98-107) mEq/L Carbon Dioxide 26 (21-32) mEq/L Anion Gap 11.6 (5-15) BUN 38 H (7-18) mg/dL Creatinine 1.2 (0.7-1.3) mg/dL Est Cr Clr Drug Dosing 59.99 mL/min Estimated GFR (MDRD) > 60 (>60) mL/min BUN/Creatinine Ratio 31.7 H (14-18) Glucose 182 H (70-99) mg/dL Calcium 8.3 L (8.5-10.1) mg/dL Total Bilirubin 0.8 (0.2-1.0) mg/dL AST 53 H (15-37) U/L ALT 112 H (16-63) U/L Alkaline Phosphatase 64 (46-116) U/L C-Reactive Protein (<1.0) mg/dL Total Protein 6.3 L (6.4-8.2) g/dl Albumin 2.6 L (3.4-5.0) g/dl Globulin 3.7 gm/dL Albumin/Globulin Ratio 0.7 L (1-2) Med Orders - Current: Current Medications Acetaminophen (Acetaminophen 325 Mg Tab) 650 mg PO Q4H PRN PRN Reason: Pain (Mild 1-3)/fever Albuterol/Ipratropium (Albuterol/Ipratropium 3.0-0.5 Mg/3 Ml Neb Soln) 3 ml NEB Q4H PRN PRN Reason: Shortness Of Breath/wheezing Last Admin: 07/15/21 05:52 Dose: 3 ml Documented by: Dexamethasone (Dexamethasone 4 Mg Tab) 6 mg PO BID [facility] Last Admin: 07/14/21 21:50 Dose: 6 mg Documented by: Docusate Sodium (Docusate Sodium 100 Mg Cap) 100 mg PO BID PRN PRN Reason: Constipation Last Admin: 07/12/21 18:42 Dose: 100 mg Documented by: Heparin Sodium (Porcine) (Heparin Sodium 5,000 Units/Ml Vial) 5,000 units SUBCUT Q8H [facility] Last Admin: 07/15/21 05:46 Dose: 5,000 units Documented by: Ondansetron HCl (Ondansetron 4 Mg Tab.Dis) 4 mg PO Q4H PRN PRN Reason: nausea, able to take PO Oxycodone HCl (Oxycodone 5 Mg Tab) 5 mg PO Q4H PRN PRN Reason: Pain (moderate 4-6) Senna/Docusate Sodium (Docusate Sodium/Sennosides 50-8.6 Mg Tab) 1 tab PO DAILY PRN PRN Reason: Constipation Last Admin: 07/13/21 10:22 Dose: 1 tab Documented by: Temazepam (Temazepam 15 Mg Cap) 15 mg PO BEDTIME PRN PRN Reason: Sleep Discontinued Medications Dexamethasone (Dexamethasone 4 Mg Tab) 6 mg PO ONETIME ONE Stop: 07/10/21 12:51 Last Admin: 07/10/21 13:08 Dose: 6 mg Documented by: Enoxaparin Sodium (Enoxaparin 30 Mg/0.3 Ml Syringe) 30 mg SUBCUT DAILY RAMU Sodium Chloride (Normal Saline) 1,000 mls @ 999 mls/hr IV NOW STA Stop: 07/10/21 13:50 Last Admin: 07/10/21 13:08 Dose: 999 mls/hr Documented by: Remdesivir 200 mg/ Sodium (Chloride) 250 mls @ 250 mls/hr IV ONETIME ONE Stop: 07/10/21 16:59 Last Admin: 07/10/21 15:35 Dose: 250 mls/hr Documented by: Remdesivir 100 mg/ Sodium (Chloride) 100 mls @ 100 mls/hr IV Q24H RAMU Stop: 07/14/21 16:59 Last Admin: 07/14/21 16:34 Dose: 100 mls/hr Documented by: Morphine Sulfate (Morphine 2 Mg/Ml Syringe) 2 mg IVPUSH Q2H PRN PRN Reason: Pain (severe 7-10) Stop: 07/11/21 14:39 - Exam Quality Assessment: Supplemental Oxygen (5L), DVT Prophylaxis General: Alert, Oriented, Cooperative, No Acute Distress HEENT: Pupils Equal, Pupils Reactive, Mucous Membr. Moist/[place] Neck: Supple, Trachea Midline Lungs: Normal Respiratory Effort, Decreased Breath Sounds, Crackles Cardiovascular: Regular Rate, Regular Rhythm GI/Abdominal Exam: Normal Bowel Sounds, Soft, Non-Tender, No Organomegaly, No Distention (Male) Exam: Deferred Back Exam: Normal Inspection, Full Range of Motion Extremities: Normal Inspection, Normal Range of Motion, Non-Tender, No Pedal Edema, Normal Capillary Refill Skin: Warm, Dry, Intact Neurological: No New Focal Deficit Psy/Mental Status: Alert, Normal Affect, Normal Mood - Patient Data Lab Results Last 24 hrs: Laboratory Results - last 24 hr 07/14/21 07/14/21 07/15/21 Range/Units 08:03 08:03 06:57 WBC 10.51 H 9.75 H (4.23-9.07) K/mm3 RBC 4.39 L 4.32 L (4.63-6.08) M/mm3 Hgb 14.1 13.9 (13.7-17.5) gm/dl Hct 42.1 41.8 (40.1-51.0) % MCV 95.9 H 96.8 H (79.0-92.2) fl MCH 32.1 32.2 (25.7-32.2) pg MCHC 33.5 33.3 (32.2-35.5) g/dl RDW Std Deviation 43.6 44.4 H (35.1-43.9) fL Plt Count 342 H 347 H (163-337) K/mm3 MPV 10.1 10.3 (9.4-12.3) fl Neut % (Auto) 87.8 H 86.1 H (34.0-67.9) % Lymph % (Auto) 4.3 L 5.2 L (21.8-53.1) % [place] % (Auto) 7.1 8.2 (5.3-12.2) % Eos % (Auto) 0 L 0 L (0.8-7.0) Baso % (Auto) 0.2 0.1 (0.1-1.2) % Neut # (Auto) 9.23 H 8.39 H (1.78-5.38) K/mm3 Lymph # (Auto) 0.45 L 0.51 L (1.32-3.57) K/mm3 [place] # (Auto) 0.75 0.80 (0.30-0.82) K/mm3 Eos # (Auto) 0.00 L 0.00 L (0.04-0.54) K/mm3 Baso # (Auto) 0.02 0.01 (0.01-0.08) K/mm3 Manual Slide Review Abnormal smear Abnormal smear Sodium 141 (136-145) mEq/L Potassium 4.3 (3.5-5.1) mEq/L Chloride 106 (98-107) mEq/L Carbon Dioxide 25 (21-32) mEq/L Anion Gap 14.3 (5-15) BUN 46 H (7-18) mg/dL Creatinine 1.3 (0.7-1.3) mg/dL Est Cr Clr Drug Dosing 55.37 mL/min Estimated GFR (MDRD) 55 (>60) mL/min BUN/Creatinine Ratio 35.4 H (14-18) Glucose 172 H (70-99) mg/dL Calcium 8.3 L (8.5-10.1) mg/dL Total Bilirubin 0.9 (0.2-1.0) mg/dL AST 93 H (15-37) U/L ALT 142 H (16-63) U/L Alkaline Phosphatase 64 (46-116) U/L C-Reactive Protein 2.2 H* (<1.0) mg/dL Total Protein 6.4 (6.4-8.2) g/dl Albumin 2.7 L (3.4-5.0) g/dl Globulin 3.7 gm/dL Albumin/Globulin Ratio 0.7 L (1-2) 07/15/21 Range/Units 06:57 WBC (4.23-9.07) K/mm3 RBC (4.63-6.08) M/mm3 Hgb (13.7-17.5) gm/dl Hct (40.1-51.0) % MCV (79.0-92.2) fl MCH (25.7-32.2) pg MCHC (32.2-35.5) g/dl RDW Std Deviation (35.1-43.9) fL Plt Count (163-337) K/mm3 MPV (9.4-12.3) fl Neut % (Auto) (34.0-67.9) % Lymph % (Auto) (21.8-53.1) % [place] % (Auto) (5.3-12.2) % Eos % (Auto) (0.8-7.0) Baso % (Auto) (0.1-1.2) % Neut # (Auto) (1.78-5.38) K/mm3 Lymph # (Auto) (1.32-3.57) K/mm3 [place] # (Auto) (0.30-0.82) K/mm3 Eos # (Auto) (0.04-0.54) K/mm3 Baso # (Auto) (0.01-0.08) K/mm3 Manual Slide Review Sodium 140 (136-145) mEq/L Potassium 4.6 (3.5-5.1) mEq/L Chloride 107 (98-107) mEq/L Carbon Dioxide 26 (21-32) mEq/L Anion Gap 11.6 (5-15) BUN 38 H (7-18) mg/dL Creatinine 1.2 (0.7-1.3) mg/dL Est Cr Clr Drug Dosing 59.99 mL/min Estimated GFR (MDRD) > 60 (>60) mL/min BUN/Creatinine Ratio 31.7 H (14-18) Glucose 182 H (70-99) mg/dL Calcium 8.3 L (8.5-10.1) mg/dL Total Bilirubin 0.8 (0.2-1.0) mg/dL AST 53 H (15-37) U/L ALT 112 H (16-63) U/L Alkaline Phosphatase 64 (46-116) U/L C-Reactive Protein (<1.0) mg/dL Total Protein 6.3 L (6.4-8.2) g/dl Albumin 2.6 L (3.4-5.0) g/dl Globulin 3.7 gm/dL Albumin/Globulin Ratio 0.7 L (1-2) Result Diagrams: 07/15/21 06:57 07/15/21 06:57 Sepsis Event Note - Evaluation Sepsis Screening Result: No Definite Risk - Focused Exam Vital Signs: Vital Signs Temp Pulse Resp BP Pulse Ox Pulse Ox 07/15/21 08:08 90 L 07/15/21 06:06 90 L 07/15/21 05:55 88 L 07/15/21 05:47 90 L 07/15/21 05:44 97.9 F 62 14 130/93 H 89 L 07/15/21 00:01 98.1 F 67 20 126/72 95 07/14/21 20:34 98.6 F 91 26 H 118/69 93 L - Problem List & Annotations (1) Acute on chronic renal insufficiency SNOMED Code(s): 492860449 Code(s): N28.9 - DISORDER OF KIDNEY AND URETER, UNSPECIFIED; N18.9 - CHRONIC KIDNEY DISEASE, UNSPECIFIED Status: Acute Priority: High Current Visit: Yes (2) Acute respiratory failure SNOMED Code(s): 25760739 Code(s): J96.00 - ACUTE RESPIRATORY FAILURE, UNSP W HYPOXIA OR HYPERCAPNIA Status: Acute Priority: High Current Visit: Yes Qualifiers: Respiratory failure complication: hypoxia Qualified Code(s): J96.01 - Acute respiratory failure with hypoxia (3) COVID-19 SNOMED Code(s): 083656309 Code(s): U07.1 - COVID-19 Status: Acute Priority: High Current Visit: Yes (4) Pneumonia due to COVID-19 virus SNOMED Code(s): 395909110584721862 Code(s): U07.1 - COVID-19; J12.82 - PNEUMONIA DUE TO CORONAVIRUS DISEASE 2019 Status: Acute Current Visit: Yes (5) Tachycardia SNOMED Code(s): 6546042 Code(s): R00.0 - TACHYCARDIA, UNSPECIFIED Status: Resolved Priority: High Current Visit: Yes Annotation/Comment:: Reactive tachycardia - Problem List Review Problem List Initiated/Reviewed/Updated: Yes - Plan Plan:: The patient is a 71-year-old gentleman who has been admitted as an inpatient with telemetry due to hypoxia from COVID-19. Is likely the patient had been in incubation stage of COVID-19 prior to his vaccine. The patient has been started on remdesivir 200 mg IV x1 dose now followed by 100 mg IV starting tomorrow for 4 days. He was also started on dexamethasone 6 mg p.o. daily to start tomorrow. The patient is also on oxygen titrated to keep his saturations around 92%. Because of his renal insufficiency he has been ordered to have heparin 5000 units subcu every 8 hours for DVT prophylaxis. The patient did have elevation of his D-dimer and will likely need to be anticoagulated upon discharge. The patient is to have a regular diet as tolerated. He has been encouraged for ambulation. The patient has repeat laboratory studies ordered for the morning. He should be appropriate for discharge in 5 days or after completion of remdesivir. 07/11/2021 The patient is a 71-year-old gentleman who is being retained in hospitalization secondary to treatment of his COVID-19. The patient's pneumonia has improved somewhat. He is still requiring oxygen and his saturations will be kept around 92%. He is also on remdesivir and this will continue for another 4 doses. He is also on DVT prophylaxis and this has been with the use of heparin 5000 units subcutaneous every 8 hours. This is due to his chronic kidney disease. He has had some improvement in his overall renal function. Repeat laboratory studies have been ordered. The patient is encouraged to ambulate. 07/12/2021 The patient is a 71-year-old gentleman who is being retained in hospital secondary to treatment of COVID-19. Overall the patient has improved. He is still requiring oxygen and his saturations will be kept around 92%. The patient is also on remdesivir and he will need to continue with this for another 3 doses. Once patient has finished his remdesivir he should be appropriate for discharge or sooner if completely asymptomatic. Repeat laboratory studies have been ordered for the morning. The patient is also afforded DVT prophylaxis with the use of heparin 5000 units subcutaneously every 8 hours. He is to continue with his regular diet as tolerated. The patient's chronic kidney disease is stable at this time. The patient has been encouraged to continue to ambulate. 07/13/2021 The patient is a 71-year-old gentleman who had been admitted secondary to acute respiratory failure due to COVID-19 pneumonia. The patient has still required oxygen at 5 L/min and his oxygen will be titrated down to keep his saturations around 92%. The patient's last dose of remdesivir will be tomorrow. The patient will have repeat laboratory testings as his LFTs have risen mildly likely secondary to the remdesivir. The patient also has improvement in his chronic renal failure and this will be monitored for now. The patient should be appropriate for discharge tomorrow depending upon improvement in his oxygen demands. He has been recommended to continue to ambulate. He will continue with his DVT prophylaxis with use of heparin subcu 5000 units daily. He is also been placed on stool softener for bowel movement. 07/14/2021 The patient is a 71-year-old gentleman who is doing much better today. He is still requiring 4 to 5 L of oxygen to maintain his saturations around 92%. The oxygen will be titrated and evaluated off of oxygen. The patient has finished remdesivir but he will continue on the dexamethasone. Patient is to continue with his regular diet as tolerated. I have ordered repeat laboratory studies for the morning to help retract the patient's LFTs. He has been encouraged to use incentive spirometer and Acapella. The patient has been encouraged to walk in his room. He is on DVT prophylaxis with the use of heparin 5000 units every 8 hours subcutaneously due to his renal insufficiency. This is improved. Patient would be appropriate for discharge in 1 to 2 days depending upon oxygen requirements. 07/15/2021 This is a 71-year-old male admitted for treatment of COVID-19 pneumonia. Patient has completed his remdesivir. He continues on dexamethasone and this will be decreased from 6 mg twice daily to 6 mg once daily. He continues to require 5 L of oxygen via nasal cannula to keep saturations above 90. WBC is slightly elevated at 9.75. Hemoglobin is 13.9. Platelet 347,000. Sodium is 140. Potassium 4.6. Anion gap is 11.6. BUN is 38. Creatinine is 1.2. GFR is greater than 60. Glucose is slightly elevated at 182. Bilirubin 0.8. AST is down to 53, ALT down to 112. Alkaline phosphatase down to 64. Albumin is 2.6. We will recheck labs in the morning including a D-dimer. Will likely qualify for home oxygen tomorrow and consider discharging pending how patient does with oxygen.
[2021-07-15] MEDS: Dexamethasone 4 MG Tab PO SCH (09:31)
[2021-07-16] MEDS: Heparin Sodium 5,000 Units/ML Vial SUBCUT SCH (05:16)
[2021-07-16] MEDS: Albuterol/Ipratropium 3.0-0.5 MG/3 ML Neb Soln NEB PRN (08:38)
--- NOTE | 2021-07-16 08:53 | PCM.DCSUM1 ---
Discharge Summary - Hospital Course HPI Initial Comments: The patient is a 71-year-old gentleman who had presented to the emergency department from [facility] for evaluation of decreased renal function and elevated liver enzymes. The patient tested positive for COVID-19. The patient also reports that 1 week ago he had the first of his Pfizer vaccines. Then the following day the patient developed severe headache and had developed shortness of breath. He denies any chills but reports a fever at home of 102 F. He said no nausea or vomiting. The patient says that he has not lost his sense of taste or smell. He was noted to have low oxygen saturations as well. The patient does report that he has had a decrease in his appetite and has not been consuming enough water. He was also tachycardic in the emergency room. The patient does not take any medications chronically. He is not using tobacco. Diagnosis: Stroke: No - Discharge Data Discharge Date: 07/16/21 (Admit date: 07/10/2021) Discharge Disposition: Home, Self-Care 01 Condition: Good - Referral to Home Health Primary Care Physician: PCP None - Discharge Diagnosis/Problem(s) (1) Acute on chronic renal insufficiency SNOMED Code(s): 952288653 ICD Code: N28.9 - DISORDER OF KIDNEY AND URETER, UNSPECIFIED; N18.9 - CHRONIC KIDNEY DISEASE, UNSPECIFIED Status: Resolved Priority: High Current Visit: Yes (2) Acute respiratory failure SNOMED Code(s): 95684865 ICD Code: J96.00 - ACUTE RESPIRATORY FAILURE, UNSP W HYPOXIA OR HYPERCAPNIA Status: Acute Priority: High Current Visit: Yes Qualifiers: Respiratory failure complication: hypoxia Qualified Code(s): J96.01 - Acute respiratory failure with hypoxia (3) COVID-19 SNOMED Code(s): 540472159 ICD Code: U07.1 - COVID-19 Status: Acute Priority: High Current Visit: Yes (4) Pneumonia due to COVID-19 virus SNOMED Code(s): 133216861562844045 ICD Code: U07.1 - COVID-19; J12.82 - PNEUMONIA DUE TO CORONAVIRUS DISEASE 2019 Status: Acute Current Visit: Yes (5) Tachycardia SNOMED Code(s): 0198637 ICD Code: R00.0 - TACHYCARDIA, UNSPECIFIED Status: Resolved Priority: High Current Visit: Yes Problem Details: Reactive tachycardia (6) Elevated d-dimer SNOMED Code(s): 090449718 ICD Code: R79.89 - OTHER SPECIFIED ABNORMAL FINDINGS OF BLOOD CHEMISTRY Status: Acute Priority: High Current Visit: Yes (7) Requires continuous at home supplemental oxygen SNOMED Code(s): 687839052 ICD Code: Z99.81 - DEPENDENCE ON SUPPLEMENTAL OXYGEN Status: Acute Priority: High Current Visit: Yes - Patient Summary/Data Consults: Consultations 07/15/21 11:09 Consult to Respiratory Therapy [Respiratory Care Assess and Treatment] [CONS] Routine Labs Pending at D/C: None Recommended Follow-up Testing/Procedures: Follow-up with primary care provider within 5-7 days of discharge, sooner if needed. * Recommend repeat CBC, CMP, and magnesium in follow-up. Consider repeat D- dimer. * Consider repeat chest x-ray in follow-up * Patient discharged on 3 days of 6 mg dexamethasone * Patient discharged on 3 L of oxygen continuously with 4 L at activity * Patient instructed to check pulse oximetry readings twice daily and record them. Please review this journal. * Patient discharged on 325 mg ASA for VTE prophylaxis. Please review if this needs to continue. * Patient given as needed albuterol inhaler at discharge Hospital Course: This is a 71-year-old male who presented to our emergency department on 07/10/2021 after being sent over from [facility] with transaminitis and acute renal injury. He was also found to be Covid positive. He reports that he received his first Covid vaccine on 07/03/2021. Shortly after receiving his vaccine he noted headache, fatigue, and decreased appetite. In the ER he was not ed to have oxygen saturations of 88%. He has reportedly had fevers as high as 102. Twelve-lead EKG was obtained showing sinus tachycardia at 125 bpm with left axis deviation, incomplete RBBB, and LAFB pattern. In the ED his BUN was 41 and creatinine was 3.2 with a GFR of 19. Bilirubin was 0.7 and AST was only minimally elevated at 67. ALT was within normal limits of 58 and alkaline phosphatase was within normal limits at 55. His subsequent admitted to the hospital for continued management of his Covid pneumonia symptoms. Chest x-ray was obtained and showed moderately severe bilateral Covid pneumonia and incidental findings. Throughout his stay patient was given IV fluids and responded well. His renal function did return to normal. He was given remdesivir and did complete 5 days of treatment. He was also on dexamethasone. He was receiving heparin every 8 hours for VT prophylaxis. On admission D-dimer was 1.38 and prior to discharge it was noted to be 2.12. Discussed with Dr. Deluna, attending hospitalist, and decision is made to start patient on 325 mg daily aspirin for VTE prophylaxis. Primary care provider may monitor this and discontinue at their discretion. Patient's CRP did return to normal limits. Unfortunately we were unable to wean patient off oxygen prior to discharge. He is receiving 3 L via nasal cannula continuously and he should increase to 4 L with activity. He has no home medications. He will be prescribed a as needed albuterol inhaler at discharge and 3 more days of 6 mg p.o. dexamethasone, completing his 10 days of steroid treatment. Recommend follow-up with primary care provider within 5 to 7 days of discharge, sooner if needed. Recommend repeat CBC, CMP, magnesium at discharge. Consider repeat D-dimer. Consider repeat chest x-ray. Patient was instructed to obtain a pulse oximeter and check his readings twice a day, recording them in a journal. PCP should review this and adjust oxygen accordingly. He was utilizing incentive spirometer and Acapella and was instructed to continue this for 1 to 2 weeks or until symptoms resolve. He completed his quarantine/isolation while here and will not need to worry about this after discharge. He is cleared for discharge home. - Patient Instructions Diet: Usual Diet as Tolerated Activity: As Tolerated Driving: Do Not Drive (Until feeling better ) Showering/Bathing: May Shower Notify Provider of: Fever, Increased Pain, Nausea and/or Vomiting Other/Special Instructions: Follow-up with primary care provider within 5 to 7 days of discharge, sooner if needed. Wear your oxygen as directed. 3L at all times and 4L with activity. Obtain a fingertip pulse oximeter. You may obtain one of these from [employer] or your local pharmacy. Check your readings twice a day and record them in a journal. Bring this journal with to all medical appointments. Contact your primary care provider if you notice you are regularly lower than 88%. Your labs indicate you are at high risk for blood clots. We do see this frequently with Covid. Because of this you were started on a full-strength 325 mg aspirin daily. This is likely not something he will need long-term. You may discuss this with your primary care provider in follow- up. You were prescribed 3 more days of 6 mg daily steroid called dexamethasone. Take this starting tomorrow, 07/17/2021 and continue until complete. You were prescribed an as needed albuterol inhaler. You may take this 3 times a day as needed for shortness of breath. You completed your isolation/quarantine while here and will not need to worry about this after discharge. You will likely receive a call from a fourdrinier machine operator for the [facility] regarding your COVID-19 status. Please follow their directions. Take it easy. Stay active but listen to your body. If you start to notice you are short of breath take a break. Continue to utilize your incentive spirometer (blue/clear device you inhale through) and acapella (blue tube you blow through) for 1-2 more weeks or until symptoms resolve. Should symptoms return or worsen contact your primary care provider or return to the emergency room. - Discharge Plan *PRESCRIPTION DRUG MONITORING PROGRAM REVIEWED*: No *COPY OF PRESCRIPTION DRUG MONITORING REPORT IN PATIENT CLIFF[place]: No Prescriptions/Med Rec: Albuterol Sulfate [Albuterol Sulfate Hfa] 18 gm IH TID PRN #1 [email or web address] PRN Reason: Shortness of breath Aspirin 325 mg PO DAILY #20 tablet dexAMETHasone [Dexamethasone] 6 mg PO DAILY #3 tablet Home Medications: Home Meds Albuterol Sulfate [Albuterol Sulfate Hfa] 18 gm IH TID PRN #1 [email or web address] 07/16/21 [Rx] Aspirin 325 mg PO DAILY #20 tablet 07/16/21 [Rx] dexAMETHasone [Dexamethasone] 6 mg PO DAILY #3 tablet 07/16/21 [Rx] Oxygen Therapy Mode: Nasal Cannula Oxygen Flow Rate (L/min): 3 (3L at all times, 4L with activity.) Maintain SpO2% greater than: 88 Patient Handouts: COVID-19, How to Use an Incentive Spirometer, Home Oxygen Use, Adult, COVID-19: How to Protect Yourself and Others - [facility] [place] Forms: ED Department Discharge Referrals: Jesse Tavares MD [Physician] - 07/22/21 2:00 pm (Please check in at 2:00) - Discharge Summary/Plan Comment DC Time >30 min.: Yes Total # of Minutes for Discharge Time: 45 mins - General Info Date of Service: 07/16/21 Admission Dx/Problem (Free Text: Admission Diagnosis/Problem Admission Diagnosis/Problem respiratory failure due to COVID-19 pneumonia. Functional Status: Reports: Pain Controlled, Tolerating Diet, Ambulating, Urinating, Incentive Spirometry, Other (Acapella ). Denies: New Symptoms - Review of Systems General: Reports: No Symptoms. Denies: Fever, Weakness, Fatigue, Malaise, Chills HEENT: Reports: No Symptoms. Denies: Headaches, Sore Throat Pulmonary: Reports: Shortness of Breath, Cough. Denies: Pleuritic Chest Pain, Sputum, Wheezing Cardiovascular: Reports: Dyspnea on Exertion. Denies: Chest Pain, Palpitations, Edema Gastrointestinal: Reports: No Symptoms. Denies: Abdominal Pain, Constipation, Diarrhea, Nausea, Vomiting Genitourinary: Reports: No Symptoms. Denies: Pain Musculoskeletal: Reports: No Symptoms Skin: Reports: No Symptoms. Denies: Cyanosis Neurological: Reports: No Symptoms. Denies: Confusion, Dizziness, Headache, Numbness, Pre-Existing Deficit, Seizure, Syncope, Tingling, Difficulty Walking, Weakness, Gait Disturbance Psychiatric: Reports: No Symptoms - Patient Data Vitals - Most Recent: Last Vital Signs Temp 97.7 F 07/16/21 08:01 Pulse 75 07/16/21 08:01 Resp 20 07/16/21 08:01 BP 120/70 07/16/21 08:01 Pulse Ox 93 L 07/16/21 08:38 Weight - Most Recent: 222 lb 1.6 oz I&O - Last 24 hours: Intake & Output 07/15/21 07/16/21 07/16/21 22:59 06:59 14:59 Intake Total 530 200 Output Total 750 900 Balance -220 -700 Lab Results - Last 24 hrs: Laboratory Results - last 24 hr 07/16/21 07/16/21 07/16/21 Range/Units 05:55 05:55 05:55 WBC 9.29 H (4.23-9.07) K/mm3 RBC 4.26 L (4.63-6.08) M/mm3 Hgb 13.7 (13.7-17.5) gm/dl Hct 41.5 (40.1-51.0) % MCV 97.4 H (79.0-92.2) fl MCH 32.2 (25.7-32.2) pg MCHC 33.0 (32.2-35.5) g/dl RDW Std Deviation 44.8 H (35.1-43.9) fL Plt Count 346 H (163-337) K/mm3 MPV 10.3 (9.4-12.3) fl Neut % (Auto) 83.5 H (34.0-67.9) % Lymph % (Auto) 6.1 L (21.8-53.1) % [place] % (Auto) 9.6 (5.3-12.2) % Eos % (Auto) 0.1 L (0.8-7.0) Baso % (Auto) 0.1 (0.1-1.2) % Neut # (Auto) 7.75 H (1.78-5.38) K/mm3 Lymph # (Auto) 0.57 L (1.32-3.57) K/mm3 [place] # (Auto) 0.89 H (0.30-0.82) K/mm3 Eos # (Auto) 0.01 L (0.04-0.54) K/mm3 Baso # (Auto) 0.01 (0.01-0.08) K/mm3 D-Dimer, Quantitative 2.12 H (0.19-0.50) mg/L Sodium 144 (136-145) mEq/L Potassium 4.1 (3.5-5.1) mEq/L Chloride 107 (98-107) mEq/L Carbon Dioxide 27 (21-32) mEq/L Anion Gap 14.1 (5-15) BUN 35 H (7-18) mg/dL Creatinine 1.2 (0.7-1.3) mg/dL Est Cr Clr Drug Dosing 59.99 mL/min Estimated GFR (MDRD) > 60 (>60) mL/min BUN/Creatinine Ratio 29.2 H (14-18) Glucose 171 H (70-99) mg/dL Calcium 8.2 L (8.5-10.1) mg/dL Magnesium 1.8 (1.8-2.4) mg/dL Total Bilirubin 0.7 (0.2-1.0) mg/dL AST 41 H (15-37) U/L ALT 91 H (16-63) U/L Alkaline Phosphatase 58 (46-116) U/L C-Reactive Protein 0.7 (<1.0) mg/dL Total Protein 5.9 L (6.4-8.2) g/dl Albumin 2.4 L (3.4-5.0) g/dl Globulin 3.5 gm/dL Albumin/Globulin Ratio 0.7 L (1-2) Med Orders - Current: Current Medications Acetaminophen (Acetaminophen 325 Mg Tab) 650 mg PO Q4H PRN PRN Reason: Pain (Mild 1-3)/fever Albuterol/Ipratropium (Albuterol/Ipratropium 3.0-0.5 Mg/3 Ml Neb Soln) 3 ml NEB Q4H PRN PRN Reason: Shortness Of Breath/wheezing Last Admin: 07/16/21 08:38 Dose: 3 ml Documented by: Dexamethasone (Dexamethasone 4 Mg Tab) 6 mg PO DAILY RAMU Stop: 07/19/21 09:01 Docusate Sodium (Docusate Sodium 100 Mg Cap) 100 mg PO BID PRN PRN Reason: Constipation Last Admin: 07/12/21 18:42 Dose: 100 mg Documented by: Heparin Sodium (Porcine) (Heparin Sodium 5,000 Units/Ml Vial) 5,000 units SUBCUT Q8H [facility] Last Admin: 07/16/21 05:16 Dose: 5,000 units Documented by: Ondansetron HCl (Ondansetron 4 Mg Tab.Dis) 4 mg PO Q4H PRN PRN Reason: nausea, able to take PO Oxycodone HCl (Oxycodone 5 Mg Tab) 5 mg PO Q4H PRN PRN Reason: Pain (moderate 4-6) Senna/Docusate Sodium (Docusate Sodium/Sennosides 50-8.6 Mg Tab) 1 tab PO DAILY PRN PRN Reason: Constipation Last Admin: 07/13/21 10:22 Dose: 1 tab Documented by: Temazepam (Temazepam 15 Mg Cap) 15 mg PO BEDTIME PRN PRN Reason: Sleep Discontinued Medications Dexamethasone (Dexamethasone 4 Mg Tab) 6 mg PO ONETIME ONE Stop: 07/10/21 12:51 Last Admin: 07/10/21 13:08 Dose: 6 mg Documented by: Dexamethasone (Dexamethasone 4 Mg Tab) 6 mg PO BID [facility] Last Admin: 07/15/21 09:31 Dose: 6 mg Documented by: Enoxaparin Sodium (Enoxaparin 30 Mg/0.3 Ml Syringe) 30 mg SUBCUT DAILY [facility] Sodium Chloride (Normal Saline) 1,000 mls @ 999 mls/hr IV NOW STA Stop: 07/10/21 13:50 Last Admin: 07/10/21 13:08 Dose: 999 mls/hr Documented by: Remdesivir 200 mg/ Sodium (Chloride) 250 mls @ 250 mls/hr IV ONETIME ONE Stop: 07/10/21 16:59 Last Admin: 07/10/21 15:35 Dose: 250 mls/hr Documented by: Remdesivir 100 mg/ Sodium (Chloride) 100 mls @ 100 mls/hr IV Q24H [facility] Stop: 07/14/21 16:59 Last Admin: 07/14/21 16:34 Dose: 100 mls/hr Documented by: Morphine Sulfate (Morphine 2 Mg/Ml Syringe) 2 mg IVPUSH Q2H PRN PRN Reason: Pain (severe 7-10) Stop: 07/11/21 14:39 - Exam Quality Assessment: Reports: Supplemental Oxygen (3L ), DVT Prophylaxis General: Reports: Alert, Oriented, Cooperative, No Acute Distress HEENT: Reports: Pupils Equal, Pupils Reactive, Mucous Membr. Moist/[place] Neck: Reports: Supple, Trachea Midline Lungs: Reports: Normal Respiratory Effort, Decreased Breath Sounds, Crackles Cardiovascular: Reports: Regular Rate, Regular Rhythm GI/Abdominal Exam: Normal Bowel Sounds, Soft, Non-Tender, No Distention (Male) Exam: Deferred Rectal (Males) Exam: Deferred Back Exam: Reports: Normal Inspection, Full Range of Motion Extremities: Normal Inspection, Normal Range of Motion, Non-Tender, No Pedal Edema, Normal Capillary Refill Skin: Reports: Warm, Dry, Intact Neurological: Reports: No New Focal Deficit Psy/Mental Status: Reports: Alert, Normal Affect, Normal Mood
[2021-07-16] MEDS ORDERED: Dexamethasone 4 MG Tab PO SCH (09:00)
== END 2021-07-16 10:28 | disposition home or self-care (01) | DRG 177 ==
LOC: JD.ED 11:07 → JD.MS 14:39
PROVIDERS: ADMIT Internal Medicine; ATTEND Internal Medicine
PROC: XW033E5 Introduction of Remdesivir Anti-infective into Peripheral Vein, Percutaneous Approach, New Technology Group 5 (ICD-10-PCS; principal; 2021-07-10)
PROC: 3E0DX3Z Introduction of Anti-inflammatory into Mouth and Pharynx, External Approach (ICD-10-PCS; 2021-07-10)
DX: U07.1 COVID-19 (principal); J12.89 Other viral pneumonia; R00.0 Tachycardia, unspecified; J12.82 Pneumonia due to coronavirus disease 2019; J96.01 Acute respiratory failure with hypoxia; N17.9 Acute kidney failure, unspecified; R79.89 Other specified abnormal findings of blood chemistry; H54.7 Unspecified visual loss; N18.9 Chronic kidney disease, unspecified; Z99.81 Dependence on supplemental oxygen
CPT/HCPCS: 36415; 71045; 80053; 83880; 84484; 85025; 85379; 86140; 93005; 99285; J7030; J8540; 83735; 93010; 94640; 94667; 94668; 94762; 99221; 99232; 99239; A9270-GY; J1644; J7050; J7620-GY

== ENCOUNTER 2021-08-06 18:07 | Emergency (ER) | payer MEDICARE, BC ==
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
[2021-08-06] MEDS ORDERED: Iopamidol 612 MG/ML 100 ML Bottle IVPUSH ONE (21:06)
--- NOTE | 2021-08-07 07:11 | CT ---
CT chest Technique: Multiple axial sections through the chest were obtained. Intravenous contrast was utilized. Study has been performed as a pulmonary angiogram protocol. Comparison: No prior chest CT is available, prior chest x-ray performed on 07/10/21 is available. Findings: Pulmonary arteries are fairly well opacified. No filling defects are seen to indicate pulmonary embolism. Thoracic aorta shows slight atherosclerotic calcification with no aneurysm. Scattered lymph nodes are seen within the mediastinum most likely related to the parenchymal process. Coronary artery calcification is seen. No pericardial thickening is seen. Visualized portions of the lungs show nothing acute. Diffuse patchy areas of increased density are scattered throughout both sides of the chest which have slightly worsened from prior chest x-ray. Bone window settings were reviewed. Mild scattered degenerative spurring is noted within the spine. No acute osseous abnormality is seen. Impression: 1. No findings of pulmonary embolism. 2. Patchy increased density within both sides of the chest. Findings are slightly more prominent than on prior chest x-ray and presumably represent COVID 19 pneumonia. 3. Other chronic findings as described above. Diagnostic code #3 I agree with preliminary report from [facility], finalized on 08/06/21, 10:23 PM HEEL BRUSHER, code 1
== END 2021-08-06 23:11 | disposition home or self-care (01) ==
LOC: JD.ED 18:07
DX: R09.02 Hypoxemia (principal); Z79.82 Long term (current) use of aspirin
CPT/HCPCS: 36415; 71275; 71275-26; 80053; 83880; 84145; 84484; 85025; 85610; 99284-25; 99285; Q9967